=== PATIENT | female | born 1930 | race Caucasian/White ===

== ENCOUNTER 2016-03-31 12:41 | Inpatient (IN) | payer BC ==
[2016-03-31] MEDS ORDERED: SODIUM CHLORIDE 0.9% 1000 ML INFUS.BAG IV STA (12:58)
--- NOTE | 2016-03-31 12:58 | PDOC ---
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 with failure to thrive and worsening of right eye disease. The patient was admitted to the [facility] 2 months ago in the setting of falls, which was a marked change from her baseline just 4-5 months ago, when she was very high functioning and ambulatory. She was discharged to rehabilitation following that admission, and has remained in the residential since then. Over the last few weeks, the right thigh has become markedly inflamed and proptotic with progression from blurred vision or loss of vision. The patient has lost weight, has gone from ambulating with assistance to being bedridden, and has markedly decreased her by mouth intake. Family was concerned about her well-being and nutrition status, requested transfer to Hospital for evaluation. Patient is only complaining of headache and discomfort around her right eye, feels generally weak and has no appetite, but denies any focal cardiopulmonary complaints. No fevers or chills, unable to say whether she has been producing urine. <Chi Ramos - Last Filed: 03/31/16 15:41> <Teddy Ferrari - Last Filed: 03/31/16 16:12> - General Chief Complaint: Loss of Appetite Stated Complaint: Altered Mental Status Time Seen by Provider: 03/31/16 12:57 Past History - Psycho/Social/Smoking Cessation Hx Suicidal Ideation: No Smoking History: Never smoked Hx Alcohol Use: No Drug/Substance Use Hx: No <Chi Ramos - Last Filed: 03/31/16 15:41> <Teddy Ferrari - Last Filed: 03/31/16 16:12> - Past Medical History Allergies/Adverse Reactions: Allergies Allergy/AdvReac Type Severity Reaction Status Date / Time Cephalosporins Allergy Verified 03/31/16 12:56 Home Medications: Ambulatory Orders Acetaminophen [Pain Relief] 650 mg PO Q6H PRN 03/31/16 Aspirin [ASA -] 81 mg PO DAILY 03/31/16 Bacitracin - [Bacitracin Topical Ointment -] 1 applic TP DAILY 03/31/16 Butalb/Acetaminophen/Caffeine [Fioricet 50-300-40 mg Capsule] 1 each PO Q4H PRN 03/31/16 Erythromycin 0.5% Eye Ointment [Erythromycin 0.5% Eye Ointment -] 1 applic OD TID 03/31/16 Escitalopram Oxalate [Lexapro -] 10 mg PO DAILY 03/31/16 Famotidine [Pepcid] 20 mg PO BID 03/31/16 Haloperidol 0.5 mg PO DAILY 03/31/16 Insulin Glargine,Hum.rec.anlog [Lantus (nf)] 5 units SQ DAILY 03/31/16 Magnesium Hydroxide [Milk of Magnesia] 400 mg PO DAILY PRN 03/31/16 Na Phos,M-B/Na Phos,Di-Ba [Enema Cmnbv-Ia-Kzq] 133 ml RC DAILY PRN 03/31/16 Sitagliptin Phosphate [Januvia] 100 mg PO DAILY 03/31/16 Review of Systems - Review of Systems Able to Perform ROS?: No (limited by condition) <Chi Ramos - Last Filed: 03/31/16 15:41> *Physical Exam - Vital Signs Last Vital Signs Temp Pulse Resp BP Pulse Ox 96.3 F L 83 30 H 122/58 95 03/31/16 12:51 03/31/16 12:51 03/31/16 12:51 03/31/16 12:51 03/31/16 12:51 - Physical Exam Comments: 03/31/16 13:03 GENERAL: The patient is awake, alert, and fully oriented, tachypneic but answering questions appropriately. HEAD: Normal with no signs of trauma. EYES: Right eye is markedly inflamed and proptotic, the cornea/pupil is opacified, the upper and lower eyelids are erythematous and inflamed. Left eye is normal. Right eye has no gross visual acuity, left eye is normal. ENT: oropharynx clear without exudates. Dry mucous membranes. NECK: Normal range of motion, supple without lymphadenopathy, JVD, or masses. LUNGS: Tachypneic, shallow breaths, but otherwise equal, clear to auscultation bilaterally. No wheeze/crackles. HEART: Overall irregular, ? occasional bigeminy. ABDOMEN: Soft/nontender/nondistended. BS wnl. No guarding or rebound. No palpable masses. No hepatosplenomegaly. EXTREMITIES: Normal range of motion, no edema. 2+ distal pulses. chronic venous stasis dermatitis. Scattered superficial abrasions from falls with bandages in place. Will undress and assess for decubitus ulcers per nursing notes. NEUROLOGICAL: Cranial nerves II through XII grossly intact. Normal speech, moving all extremities equally. PSYCH: Normal mood, normal affect. SKIN: as noted <Chi Ramos - Last Filed: 03/31/16 15:41> - Vital Signs Last Vital Signs Temp Pulse Resp BP Pulse Ox 96.3 F L 83 30 H 122/58 95 03/31/16 12:51 03/31/16 12:51 03/31/16 12:51 03/31/16 12:51 03/31/16 12:51 <Teddy Ferrari - Last Filed: 03/31/16 16:12> Heart Score/ECG Review #1 ECG reviewed & interpreted by me at: 15:14 03/31/16 15:21 Atrial flutter with variable conduction, no acute ischemic changes. <Chi Ramos - Last Filed: 03/31/16 15:41> ED Treatment Course - LABORATORY CBC & Chemistry Diagram: 03/31/16 13:30 03/31/16 13:30 <Chi Ramos - Last Filed: 03/31/16 15:41> - LABORATORY CBC & Chemistry Diagram: 03/31/16 13:30 03/31/16 13:30 - ADDITIONAL ORDERS Additional order review: Laboratory Results 03/31/16 03/31/16 03/31/16 13:31 13:30 13:30 INR PTT (Actin FS) VBG pH 7.42 H POC VBG pCO2 42.5 POC VBG pO2 43.6 H Sodium Potassium Chloride Carbon Dioxide Anion Gap BUN Creatinine Creat Clearance w eGFR Random Glucose Lactic Acid 1.119 Calcium Total Bilirubin AST ALT Alkaline Phosphatase Creatine Kinase Troponin I Total Protein Albumin Blood Type AB POSITIVE Antibody Screen Negative 03/31/16 03/31/16 13:30 13:30 INR 1.20 H PTT (Actin FS) 27.9 VBG pH POC VBG pCO2 POC VBG pO2 Sodium 138 Potassium 4.3 Chloride 101 Carbon Dioxide 29 Anion Gap 8 BUN 7 Creatinine 0.3 L Creat Clearance w eGFR > 60 Random Glucose 183 H Lactic Acid Calcium 8.4 L Total Bilirubin 0.3 AST 13 L ALT 15 Alkaline Phosphatase 143 H Creatine Kinase 20 L Troponin I < 0.02 Total Protein 6.8 Albumin 2.5 L Blood Type Antibody Screen 03/31/16 13:30 RBC 3.98 MCV 87.5 MCHC 32.7 RDW 14.5 MPV 8.2 Neutrophils % 72.4 Lymphocytes % 16.3 Monocytes % 7.7 Eosinophils % 2.7 Basophils % 0.9 - RADIOLOGY Radiograph Interpretation: 03/31/16 16:05 EXAM: CXR Reviewed by: Dr. Chi Ramos Interpreted by: Dr. Graham Osei IMPRESSION: Right-sided infiltrates. Recommend follow-up chest x-ray to resolution to exclude possibility of underlying mass. EXAM: Head CT Reviewed by: Dr. Chi Ramos Interpreted by: Dr. Tulio Rodrigues IMPRESSION: No evidence of acute intracranial hemorrhage, edema, midline shift, mass effect, or skull fracture. Loss of volume of volume of the brain parenchyma with supratentorial chronic white matter microangiopathic ischemic changes. Lacunar infarcts in the basal ganglia, head of caudate nuclei. No CT evidence of acute territorial infarction. EXAM: CT facial bones Reviewed by: Dr. Chi Ramos Interpreted by: Dr. Tulio Rodrigues IMPRESSION: Right retro-orbital mass. 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 Right frontal sinus disease. Old fracture of the left frontal process of maxilla. Erosion of the anterior nasal septum. - Medications Given in the ED: ED Medications Discontinued Medications Generic Name Dose Route Start Last Admin Trade Name Freq PRN Reason Stop Dose Admin Sodium Chloride 1,157 ml 03/31/16 12:58 03/31/16 13:39 Normal Saline - IV 03/31/16 12:59 1,157 ml ONCE STA Administration <Teddy Ferrari - Last Filed: 03/31/16 16:12> Medical Decision Making - Medical Decision Making 03/31/16 13:07 A portion of this note was documented by scribe services under my direction. I have reviewed the details of the note, within reason, and agree with the documentation with the following case summary and management plan written by me. 86-year-old female from residential for failure to thrive, dehydration, worsening right ocular cancer. Dehydrated, tachypneic, possible acidosis, ? 2/2 renal failure? R/O progression/metastasis, neuro nonfocal. labs, ua ekg, cxr ivf ct head and maxillofacial Will need admission 03/31/16 14:23 notably, labs wnl except for mild electrolyte disturbance. CXR with infiltrate v. neoplasm, given no fever or leukocytosis, will defer to CT chest imaging. Head and facial CT pending. Accepted for inpt med/surg by Dr. Alvarado. 03/31/16 15:22 EKG with fib/flutter, reportedly new for patient. Inpatient team updated and switched to tele bed. 03/31/16 15:41 CT head shows no acute pathology. Maxillofacial CT shows retro-orbital mass causing proptosis. <Chi Ramos - Last Filed: 03/31/16 15:41> *DC/Admit/Observation/Transfer - Discharge Dispostion Admit: Yes <Chi Ramos - Last Filed: 03/31/16 15:41> <Teddy Ferrari - Last Filed: 03/31/16 16:12> Diagnosis at time of Disposition: Dehydration, Failure to thrive in adult, New onset atrial flutter Eye cancer Qualifiers: Laterality: right Qualified Code(s): C69.91 - Malignant neoplasm of unspecified site of right eye - Discharge Dispostion Condition at time of disposition: Guarded - Referrals
[2016-03-31 13:36] LABS: VENOUS BLOOD GAS HCO3 27.9 meq/L (22-29)
[2016-03-31 13:37] LABS: VENOUS PH 7.42 (7.31-7.41)
[2016-03-31 13:38] LABS: BASOPHIL 0.9 % (0-2.0); EOSINOPHIL 2.7 % (0-4.5); MCH 28.6 pg (25.7-33.7); MCHC 32.7 g/dl (32.0-36.0); MEAN CELL VOLUME 87.5 fl (80-96); MEAN PLT VOLUME 8.2 fl (7.5-11.1); NEUTROPHILS 72.4 % (42.8-82.8); PLATELET COUNT 670 K/MM3 (134-434); RDW 14.5 % (11.6-15.6); WHITE BLOOD COUNT 9.9 K/mm3 (4.0-10.0)
[2016-03-31 13:56] LABS: INR 1.2 (0.82-1.09); PROTHROMBIN TIME (PATIENT) 13.2 SEC (9.98-11.88)
[2016-03-31 13:58] LABS: ACTIVATED PTT 27.9 SECONDS (26.9-34.4)
[2016-03-31 13:59] LABS: ALBUMIN 2.5 g/dl (3.4-5.0); ANION GAP 8 (8-16); BILIRUBIN,TOTAL 0.3 mg/dL (0.2-1.0); CALCIUM 8.4 mg/dL (8.5-10.1); CO2 29 mmol/L (21-32); CREATININE 0.3 mg/dL (0.55-1.02); GLUCOSE,RANDOM 183 mg/dL (74-106); SGOT/AST 13 U/L (15-37); SGPT/ALT 15 U/L (12-78); TOT PROT 6.8 g/dl (6.4-8.2)
[2016-03-31 14:01] LABS: ALK PHOS 143 U/L (45-117); TROPONIN I < 0.02 ng/ml (0.00-0.05)
[2016-03-31 15:43] LABS: URINE APPEARANCE CLOUDY; URINE BILIRUBIN NEGATIVE (NEGATIVE); URINE BLOOD NEGATIVE (NEGATIVE); URINE COLOR YELLOW; URINE GLUCOSE (UA) NEGATIVE (NEGATIVE); URINE KETONE NEGATIVE (NEGATIVE); URINE LEUK ESTERASE NEGATIVE (NEGATIVE); URINE NITRITE NEGATIVE (NEGATIVE); URINE PROTEIN NEGATIVE (NEGATIVE); URINE UROBILINOGEN NEGATIVE E.U./dl (0.2-1.0)
[2016-03-31] MEDS ORDERED: MAGNESIUM HYDROX 2400MG/30ML ORAL SUSPENSION 30 ML CUP PO PRN (15:52)
[2016-03-31] MEDS ORDERED: SODIUM PHOSPHATE/NA BIPHOS 133 ML ENEMA RC PRN (15:52)
[2016-03-31] MEDS ORDERED: VANCOMYCIN 1 GRAM (PRE-DOCKED) 250 ML IVPB ONE (16:08)
[2016-03-31] MEDS ORDERED: PIPERACILLIN/TAZOB 3.375 GM/50 ML PRE-DOCKED IVPB ONE (16:08)
[2016-03-31] MEDS: INSULIN SLIDING SCALE (NOVOLOG) 1 VIAL SQ SCH ×2 (17:00→23:06)
[2016-03-31] MEDS ORDERED: PNEUMOC 13-VAL CONJ-DIP CRM/PF 0.5 ML DISP.SYRIN IM ONE (17:22)
[2016-03-31 17:23] VITALS: BMI 12.4
[2016-03-31] MEDS ORDERED: ALBUTEROL SO4 0.083% IH SOL 2.5 MG/3 ML VIAL.NEB. NEB PRN (17:42)
--- NOTE | 2016-03-31 17:45 | HP ---
CHIEF COMPLAINT: Change in mental status HISTORY OF PRESENT ILLNESS: This is an 86-year-old woman who was sent in to the ER today for evaluation of change in mental status, poor oral intake and tachypnea. She is not able to provide a history. As per family, in November, she had swelling of her right eyelid and was diagnosed with squamous cell carcinoma at [facility]. Radiation was recommended. Family was unable to get her to follow up because of anxiety and panic attacks. She was admitted to [facility] around 2 months ago and transferred to rehab at [facility]. While there, her right eye has become more swollen and proptotic. Family says it was being treated with topical antibiotics. The patient has complained of headaches. She has not been eating. PAST MEDICAL HISTORY Asthma Type 2 diabetes mellitus PAST SURGICAL HISTORY None Social History: Smoking: No Alcohol: No Drugs: No Recent Travel: No Family History: Unremarkable Allergies 3 Allergy/AdvReac Type Severity Reaction Status Date / Time No Known Drug Allergies Allergy Verified 03/31/16 17:46 HOME MEDICATIONS 3 Medication Instructions Recorded Acetaminophen [Pain Relief] 650 mg PO Q6H PRN 03/31/16 Aspirin [ASA -] 81 mg PO DAILY Bacitracin - [Bacitracin Topical 1 applic TP DAILY 03/31/16 Ointment -] Butalb/Acetaminophen/Caffeine 1 each PO Q4H PRN 03/31/16 [Fioricet 50-300-40 mg Capsule] Erythromycin 0.5% Eye Ointment 1 applic OD TID 03/31/16 [Erythromycin 0.5% Eye Ointment -] Escitalopram Oxalate [Lexapro -] 10 mg PO DAILY 03/31/16 Famotidine [Pepcid] 20 mg PO BID 03/31/16 Haloperidol 0.5 mg PO DAILY 03/31/16 Insulin Glargine,Hum.rec.anlog 5 units SQ DAILY 03/31/16 [Lantus (nf)] Magnesium Hydroxide [Milk of 400 mg PO DAILY PRN 03/31/16 Magnesia] Na Phos,M-B/Na Phos,Di-Ba [Enema 133 ml RC DAILY PRN 03/31/16 [id number]] Sitagliptin Phosphate [Januvia] 100 mg PO DAILY 03/31/16 REVIEW OF SYSTEMS Unobtainable PHYSICAL EXAMINATION Vital Signs Period Temp Pulse Resp BP Sys/Ojeda Pulse Ox Last 24 Hr 96.3 F 83 30 122/58 95 GENERAL: Awake, alert, confused, in no acute distress. HEAD: Normal with no signs of trauma. EYES: Right eye proptotic with opacified pupil. Left pupil round and reactive to light, left sclera anicteric, left conjunctiva clear. EARS, NOSE, THROAT: Ears normal, nares patent. Dry mucous membranes. NECK: Normal range of motion, supple without lymphadenopathy, JVD, or masses. LUNGS: Bilateral crackles. Labored breathing. HEART: Irregular rhythm without murmur, rub or gallop. ABDOMEN: Soft, not distended, normoactive bowel sounds, no guarding, no rebound , no masses. No hepatomegaly or splenomegaly. MUSCULOSKELETAL: Normal passive range of motion at all joints. No bony deformities. UPPER EXTREMITIES: 2+ pulses, warm, well-perfused. No cyanosis. No clubbing. Cap refill <2 seconds. No peripheral edema. LOWER EXTREMITIES: 2+ pulses, warm, well-perfused. No peripheral edema. NEUROLOGICAL: Unable to assess. PSYCHIATRIC: Unable to assess. SKIN: Warm, dry, poor turgor. Laboratory Tests 03/31/16 03/31/16 03/31/16 13:30 13:30 13:30 WBC 9.9 RBC 3.98 Hgb 11.4 Hct 34.8 MCV 87.5 MCHC 32.7 RDW 14.5 Plt Count 670 H MPV 8.2 Neutrophils % 72.4 Lymphocytes % 16.3 Monocytes % 7.7 Eosinophils % 2.7 Basophils % 0.9 INR 1.20 H PTT (Actin FS) 27.9 VBG pH POC VBG pCO2 POC VBG pO2 Sodium 138 Potassium 4.3 Chloride 101 Carbon Dioxide 29 Anion Gap 8 BUN 7 Creatinine 0.3 L Creat Clearance w eGFR > 60 Random Glucose 183 H Lactic Acid Calcium 8.4 L Total Bilirubin 0.3 AST 13 L ALT 15 Alkaline Phosphatase 143 H Creatine Kinase 20 L Troponin I < 0.02 Total Protein 6.8 Albumin 2.5 L Urine Color Urine Appearance Urine pH Ur Specific [place] Urine Protein Urine Glucose (UA) Urine Ketones Urine Blood Urine Nitrite Urine Bilirubin Urine Urobilinogen Ur Leukocyte Esterase Blood Type Antibody Screen 03/31/16 03/31/16 03/31/16 13:30 13:30 13:31 WBC RBC Hgb Hct MCV MCHC RDW Plt Count MPV Neutrophils % Lymphocytes % Monocytes % Eosinophils % Basophils % INR PTT (Actin FS) VBG pH 7.42 H POC VBG pCO2 42.5 POC VBG pO2 43.6 H Sodium Potassium Chloride Carbon Dioxide Anion Gap BUN Creatinine Creat Clearance w eGFR Random Glucose Lactic Acid 1.119 Calcium Total Bilirubin AST ALT Alkaline Phosphatase Creatine Kinase Troponin I Total Protein Albumin Urine Color Urine Appearance Urine pH Ur Specific [place] Urine Protein Urine Glucose (UA) Urine Ketones Urine Blood Urine Nitrite Urine Bilirubin Urine Urobilinogen Ur Leukocyte Esterase Blood Type AB POSITIVE Antibody Screen Negative 03/31/16 15:12 WBC RBC Hgb Hct MCV MCHC RDW Plt Count MPV Neutrophils % Lymphocytes % Monocytes % Eosinophils % Basophils % INR PTT (Actin FS) VBG pH POC VBG pCO2 POC VBG pO2 Sodium Potassium Chloride Carbon Dioxide Anion Gap BUN Creatinine Creat Clearance w eGFR Random Glucose Lactic Acid Calcium Total Bilirubin AST ALT Alkaline Phosphatase Creatine Kinase Troponin I Total Protein Albumin Urine Color Yellow Urine Appearance Cloudy Urine pH 6.0 Ur Specific [place] 1.013 Urine Protein Negative Urine Glucose (UA) Negative Urine Ketones Negative Urine Blood Negative Urine Nitrite Negative Urine Bilirubin Negative Urine Urobilinogen Negative Ur Leukocyte Esterase Negative Blood Type Antibody Screen Chest x-ray: Right-sided infiltrates. Head CT: No acute infarct, hemorrhage, mass. Volume loss. Chronic white matter ischemic changes. Lacunar infarcts of basal ganglia, head of caudate nuclei. CT of facial bones: Right retro-orbital mass. Right exophthalmos. Right frontal sinus disease. Old fracture of left frontal process of maxilla. Erosion of anterior nasal septum. EKG: Atrial flutter. Ventricular rate 72. ASSESSMENT/PLAN: This is an 86-year-old woman with a history of type 2 DM, asthma, squamous cell carcinoma of right eye who was sent in from [facility] for loss of appetite, headache, tachypnea and change in mental status. She was found to have temp 96.3 , right lung infiltrate on CXR. She is being admitted now for further evaluation and treatment of an emergent condition. 1. Healthcare-associated pneumonia, asthma - Patient has normal WBC, but has tachypnea and temp 96.3 - Start Zosyn, Vancomycin - Albuterol as needed - Chest CT - ID consult 2. Dehydration - IV fluid 3. Squamous cell carcinoma of right eyelid - Oncology, radiation oncology, ophthalmology consults 4. Failure to thrive - Start Glucerna - Nutrition consult 5. Type 2 diabetes mellitus - Continue Lantus, Januvia - Fingersticks with Novolog sliding scale 6. Atrial flutter, possibly new-onset - Monitor on telemetry - Serial troponins - Echocardiogram
[2016-03-31] MEDS ORDERED: PIPERACILLIN/TAZOB 3.375 GM 50 ML IVPB ONE (18:32)
[2016-03-31] MEDS: SODIUM CHLORIDE 1,000 ML IV SCH (18:48)
--- NOTE | 2016-03-31 21:26 | CONSULT ---
Consult - text type - Consultation Consultation Note: 86-year-old female with history of diabetes, ? squamous cell cancer of rt. eye lid status post initial diagnosis and biopsy in November, now presents from [facility] with failure to thrive and worsening of right eye disease. The patient was admitted to the [facility] 2 months ago in the setting of falls, which was a marked change from her baseline just 4-5 months ago, when she was very high functioning and ambulatory. She was discharged to rehabilitation following that admission, and [facility] since then. Over the last few weeks, the right eye has become markedly inflamed and proptotic with progression from blurred vision to loss of vision. The patient has lost weight, has gone from ambulating with assistance to being bedridden, and has markedly decreased her by mouth intake. Family was concerned about her well-being and nutrition status, requested transfer to Hospital for evaluation. Patient is only complaining of headache and discomfort around her right eye, feels generally weak and has no appetite, but denies any focal cardiopulmonary complaints. Past History never smoked - Past Medical History ? dementia asthma DM Allergies/Adverse Reactions: Allergies Allergy/AdvReac Type Severity Reaction Status Date / Time Cephalosporins Allergy Verified 03/31/16 12:56 Home Medications: Ambulatory Orders Acetaminophen [Pain Relief] 650 mg PO Q6H PRN 03/31/16 Aspirin [ASA -] 81 mg PO DAILY 03/31/16 Bacitracin - [Bacitracin Topical Ointment -] 1 applic TP DAILY 03/31/16 Butalb/Acetaminophen/Caffeine [Fioricet 50-300-40 mg Capsule] 1 each PO Q4H PRN 03/31/16 Erythromycin 0.5% Eye Ointment [Erythromycin 0.5% Eye Ointment -] 1 applic OD TID 03/31/16 Escitalopram Oxalate [Lexapro -] 10 mg PO DAILY 03/31/16 Famotidine [Pepcid] 20 mg PO BID 03/31/16 Haloperidol 0.5 mg PO DAILY 03/31/16 Insulin Glargine,Hum.rec.anlog [Lantus (nf)] 5 units SQ DAILY 03/31/16 Magnesium Hydroxide [Milk of Magnesia] 400 mg PO DAILY PRN 03/31/16 Na Phos,M-B/Na Phos,Di-Ba [Enema Ktayv-Mp-Bdq] 133 ml RC DAILY PRN 03/31/16 Sitagliptin Phosphate [Januvia] 100 mg PO DAILY 03/31/16 Current Medications Acetaminophen (Tylenol -) 650 mg PO Q6H PRN PRN Reason: PAIN Albuterol Sulfate (Ventolin 0.083% Nebulizer Soln -) 1 amp NEB Q4H PRN PRN Reason: SHORT OF BREATH/WHEEZING Aspirin (Asa -) 81 mg PO DAILY [facility] Escitalopram Oxalate (Lexapro -) 10 mg PO DAILY [facility] Haloperidol (Haldol -) 0.5 mg PO DAILY [facility] Sodium Chloride (Normal Saline -) 1,000 mls @ 100 mls/hr IV ASDIR [facility] Last Admin: 03/31/16 18:48 Dose: 100 mls/hr Insulin Aspart (Novolog Vial Sliding Scale -) 1 vial SQ ACHS [facility] PRN Reason: Protocol Last Admin: 03/31/16 17:00 Dose: Not Given Insulin Detemir (Levemir Vial) 5 units SQ DAILY@0700 [facility] Magnesium Hydroxide (Milk Of Magnesia -) 30 ml PO DAILY PRN PRN Reason: CONSTIPATION Morphine Sulfate (Morphine Injection -) 1 mg IVPUSH Q4H PRN PRN Reason: PAIN Ondansetron HCl (Zofran Injection) 4 mg IVPB Q4H PRN PRN Reason: NAUSEA Piperacillin Sod/Tazobactam Sod (Zosyn 3.375gm Ivpb (Pre-Docked)) 3.375 gm IVPB Q8H-IV BG Ranitidine HCl (Zantac -) 150 mg PO BID [facility] Sitagliptin Phosphate (Januvia -) 100 mg PO DAILY@0700 [facility] Sodium Phosphate (Fleet Adult Rectal Enema -) 133 ml RC DAILY PRN PRN Reason: CONSTIPATION *Physical Exam Last Vital Signs Temp Pulse Resp BP Pulse Ox 96.3 F L 83 30 H 122/58 95 03/31/16 12:51 03/31/16 12:51 03/31/16 12:51 03/31/16 12:51 03/31/16 12:51 Rt. orbital tumor with profound proptosis, extensive tumor involvement of rt. orbit Cor: RSR, No murmurs, No gallops Lungs: Clear to P&A Abd: Soft, Normal bowel sounds, No organomegaly Ext:No significant edema Abnormal Lab Results 03/31/16 03/31/16 03/31/16 13:30 13:30 13:30 Plt Count 670 H INR 1.20 H VBG pH POC VBG pO2 Creatinine 0.3 L Random Glucose 183 H Calcium 8.4 L AST 13 L Alkaline Phosphatase 143 H Creatine Kinase 20 L Albumin 2.5 L 03/31/16 13:31 Plt Count INR VBG pH 7.42 H POC VBG pO2 43.6 H Creatinine Random Glucose Calcium AST Alkaline Phosphatase Creatine Kinase Albumin - RADIOLOGY Radiograph Interpretation: IMPRESSION: Right-sided infiltrates. Recommend follow-up chest x-ray to resolution to exclude possibility of underlying mass. EXAM: Head CT IMPRESSION: No evidence of acute intracranial hemorrhage, edema, midline shift, mass effect, or skull fracture. Loss of volume of volume of the brain parenchyma with supratentorial chronic white matter microangiopathic ischemic changes. Lacunar infarcts in the basal ganglia, head of caudate nuclei. No CT evidence of acute territorial infarction. EXAM: CT facial bones IMPRESSION: Right retro-orbital mass. 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 Right frontal sinus disease. Old fracture of the left frontal process of maxilla. Erosion of the anterior nasal septum. A/P 86-year-old female from prison for failure to thrive, ? dementia, worsening right eye lid squamous cell cancer. Noted to have b/l pneumonia Rt. eyelid squamous cell cancer diagnosed 11/24 now with extensive orbital involvement and loss of rt. eye vision. Given her overall performance status does not seem to be a candidate for surgery . ophthalmology team consulted.will discuss with rad-onc ? paliiative options Overall very frail, cachectic -- will discuss goals of care with family. palliative care consult
[2016-03-31] MEDS: ACETAMINOPHEN 325 MG TABLET (FP) PO PRN (23:04)
[2016-03-31] MEDS: RANITIDINE HCL 150 MG TABLET (FP) PO SCH (23:16)
[2016-04-01] MEDS ORDERED: PIPERACILLIN/TAZOB 3.375 GM/50 ML PRE-DOCKED IVPB SCH (02:00)
[2016-04-01] MEDS: INSULIN SLIDING SCALE (NOVOLOG) 1 VIAL SQ SCH ×4 (06:21→21:57)
[2016-04-01] MEDS: INSULIN DETEMIR 100 UNITS/ML MDV SQ SCH (06:26)
[2016-04-01] MEDS: sitaGLIPtin PHOSPHATE 100 MG TABLET (FP) PO SCH (06:26)
[2016-04-01] MEDS: morphine CARPU-JECT 2 MG/1 ML DISP.SYRIN IVPUSH PRN (06:40)
[2016-04-01 07:55] LABS: MCH 28.9 pg (25.7-33.7); MEAN CELL VOLUME 87.6 fl (80-96); MEAN PLT VOLUME 8.4 fl (7.5-11.1); PLATELET COUNT 615 K/MM3 (134-434); RDW 14.4 % (11.6-15.6); WHITE BLOOD COUNT 8.3 K/mm3 (4.0-10.0)
[2016-04-01 08:50] LABS: CALCIUM 8.2 mg/dL (8.5-10.1); CREATININE 0.2 mg/dL (0.55-1.02)
[2016-04-01 09:21] LABS: FREE T4 1.16 ng/dl (0.76-1.46)
--- NOTE | 2016-04-01 09:51 | PN ---
Progress Note (short form) - Note Progress Note: ID Admitted for failure to thrive altered mental status Patient minimally conversive in NAD Selected Entries 03/31/16 16:50 Temperature 97.5 F L Pulse Rate 73 Respiratory 30 H Rate Blood Pressure 123/62 HEENT Proptosis of the orbital (has odor) Lungs Diminished effort bilat Laboratory Tests 03/31/16 04/01/16 04/01/16 15:12 06:00 06:00 WBC 8.3 Hgb 10.3 L Hct 31.1 L Plt Count 615 H BUN 3 L D Creatinine 0.2 L D Urine Nitrite Negative Assessment Orbital Cancer Failure to thrive Pulmonary infiltrates not impressive for acute pneumonia but given her debilitated status will give her the benefit of the doubt and treat Plan Zosyn 2.25grs q6 Teresita LEACH Problem List - Problems (1) Eye cancer Code(s): C69.90 - MALIGNANT NEOPLASM OF UNSPECIFIED SITE OF UNSPECIFIED EYE Qualifiers: Laterality: right Qualified Code(s): C69.91 - Malignant neoplasm of unspecified site of right eye (2) Pneumonia Code(s): J18.9 - PNEUMONIA, UNSPECIFIED ORGANISM
[2016-04-01 10:00] LABS: THYROID STIMULATING HORMONE 2.33 uIU/ml (0.358-3.74)
--- NOTE | 2016-04-01 10:22 | PN ---
Progress Note (short form) - Note Progress Note: Subjective: The patient was seen and examined at the bedside, she is minimally conversant this AM. She reports having some back pain but is unable to state where or how much pain she is in. At the moment she appears comfortable, no grimacing noted. Current Medications Generic Name Dose Route Start Last Admin Trade Name Freq PRN Reason Stop Dose Admin Acetaminophen 650 mg 03/31/16 15:44 03/31/16 23:04 Tylenol - PO 650 mg Q6H PRN Administration PAIN Albuterol Sulfate 1 amp 03/31/16 17:42 Ventolin 0.083% Nebulizer Soln - NEB Q4H PRN SHORT OF BREATH/WHEEZING Aspirin 81 mg 04/01/16 10:00 Asa - PO DAILY BG Escitalopram Oxalate 10 mg 04/01/16 10:00 Lexapro - PO DAILY BG Haloperidol 0.5 mg 04/01/16 10:00 Haldol - PO DAILY BG Sodium Chloride 1,000 mls @ 100 mls/hr 03/31/16 17:15 03/31/16 18:48 Normal Saline - IV 100 mls/hr ASDIR BG Administration Piperacillin Sod/Tazobactam 50 mls @ 100 mls/hr 04/01/16 15:00 Sod 2.25 gm/ Dextrose IVPB Q6H-IV BG Insulin Aspart 1 vial 03/31/16 16:30 04/01/16 06:21 Novolog Vial Sliding Scale - SQ Not Given ACHS [facility] Protocol Insulin Detemir 5 units 04/01/16 07:00 04/01/16 06:26 Levemir Vial SQ 5 units DAILY@0700 BG Administration Magnesium Hydroxide 30 ml 03/31/16 15:52 03/31/16 23:05 Milk Of Magnesia - PO 30 ml DAILY PRN Administration CONSTIPATION Morphine Sulfate 1 mg 03/31/16 15:55 04/01/16 06:40 Morphine Injection - IVPUSH 1 mg Q4H PRN Administration PAIN Ondansetron HCl 4 mg 03/31/16 15:55 Zofran Injection IVPB Q4H PRN NAUSEA Piperacillin Sod/Tazobactam Sod 3.375 gm 04/01/16 02:00 04/01/16 03:08 Zosyn 3.375gm Ivpb (Pre-Docked) IVPB 3.375 gm Q8H-IV BG Administration Ranitidine HCl 150 mg 03/31/16 22:00 03/31/16 23:16 Zantac - PO 150 mg BID BG Administration Sitagliptin Phosphate 100 mg 04/01/16 07:00 04/01/16 06:26 Januvia - PO 100 mg DAILY@0700 BG Administration Sodium Phosphate 133 ml 03/31/16 15:52 Fleet Adult Rectal Enema - RC DAILY PRN CONSTIPATION Objective: Vital Signs Period Temp Pulse Resp BP Sys/Ojeda Pulse Ox Last 24 Hr 96.3 F-99.7 F 71-83 18-30 122-153/46-84 95-98 Physical Exam: General: Sleeping, arousable to voice, is conversant with one word answers and then falls back to sleep HEENT: right eye with profound proptosis, opacified pupil, no eyelid movement or blinking. Left eye reactive to light Lungs: Decreased breath sounds anteriorly Heart: RRR, S1S2 Abd: Soft, non-distended. Normoactive bowel sounds Ext: Warm, well-perfused. 2+ DP/PT bilaterally CBCD WBC 8.3 K/mm3 (4.0-10.0) 04/01/16 06:00 RBC 3.55 M/mm3 (3.60-5.2) L 04/01/16 06:00 Hgb 10.3 GM/dL (10.7-15.3) L 04/01/16 06:00 Hct 31.1 % (32.4-45.2) L 04/01/16 06:00 MCV 87.6 fl (80-96) 04/01/16 06:00 MCHC 33.0 g/dl (32.0-36.0) 04/01/16 06:00 RDW 14.4 % (11.6-15.6) 04/01/16 06:00 Plt Count 615 K/MM3 (134-434) H 04/01/16 06:00 MPV 8.4 fl (7.5-11.1) 04/01/16 06:00 CMP Sodium 137 mmol/L (136-145) 04/01/16 06:00 Potassium 4.0 mmol/L (3.5-5.1) 04/01/16 06:00 Chloride 106 mmol/L (98-107) 04/01/16 06:00 Carbon Dioxide 25 mmol/L (21-32) 04/01/16 06:00 Anion Gap 6 (8-16) L 04/01/16 06:00 BUN 3 mg/dL (7-18) L D 04/01/16 06:00 Creatinine 0.2 mg/dL (0.55-1.02) L D 04/01/16 06:00 Creat Clearance w eGFR > 60 (>60) 03/31/16 13:30 Random Glucose 114 mg/dL (74-106) H D 04/01/16 06:00 Calcium 8.2 mg/dL (8.5-10.1) L 04/01/16 06:00 Total Bilirubin 0.3 mg/dL (0.2-1.0) 03/31/16 13:30 AST 13 U/L (15-37) L 03/31/16 13:30 ALT 15 U/L (12-78) 03/31/16 13:30 Alkaline Phosphatase 143 U/L (45-117) H 03/31/16 13:30 Total Protein 6.8 g/dl (6.4-8.2) 03/31/16 13:30 Albumin 2.5 g/dl (3.4-5.0) L 03/31/16 13:30 CARDIAC ENZYMES Creatine Kinase 20 IU/L (26-192) L 03/31/16 13:30 Troponin I < 0.02 ng/ml (0.00-0.05) 04/01/16 01:30 Assessment: This is an 86 year old female with PMHx of asthma, DM, squamous cell carcinoma of right eyelid who presented to the ED for FTT, change in mental status, and tachypnea. Plan: 1) ID: HCAP - WBC wnl - Chest CT with b/l infiltrates and no evidence of pulmonary masses - Continue Zosyn - Appreciate ID consult 2) Oncology: Right eyelid squamous cell carcinoma - Patient appears comfortable - Not a surgical candidate per oncology - F/u ophthalmology consult - F/u rad onc consult - Palliative care consult to discuss goals of care - Appreciate oncology consult 3) Endocrine: DM - Continue Levemir - ISS ACHS - BGM ACHS 4) Cardiology: Atrial flutter - New onset? - Serial troponins negative - F/u EKG today - F/u ECHO 5) F/E/N: - FTT: IV fluids, give glucerna - Monitor electrolytes 6) Prophylaxis: - SCDs bilaterally 7) Dispo: - Will likely require palliative care CODE STATUS: DNR Visit type - Emergency Visit Emergency Visit: Yes ED Registration Date: 03/31/16 Care time: The patient presented to the Emergency Department on the above date and was hospitalized for further evaluation of their emergent condition. - New Patient This patient is new to me today: Yes Date on this admission: 04/01/16 - Critical Care Critical Care patient: No
[2016-04-01] MEDS: HALOPERIDOL 0.5 MG TABLET PO SCH (11:04)
[2016-04-01] MEDS: ESCITALOPRAM OXALATE 10 MG TABLET (FP) PO SCH (11:18)
[2016-04-01] MEDS: ASPIRIN 81 MG CHEWABLE TABLETS PO SCH (11:18)
[2016-04-01] MEDS: RANITIDINE HCL 150 MG TABLET (FP) PO SCH ×2 (11:18→21:57)
[2016-04-01] MEDS: PIPERACILLIN/TAZOB 2.25 GM 50 ML IVPB SCH ×2 (15:15→21:57)
--- NOTE | 2016-04-01 16:25 | CONS ---
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 She was biopsy-proven in November 2015 and had been admitted subsequently for a lengthy admission to [facility] for frequent falls. She was apparently high functioning and ambulatory and had been discharged to a rehabilitation facility since that time, where she has remained. Her tumor was felt to be unresectable and she was not felt to be a candidate for radiation therapy. Thus she has a large proptotic right eye and has had progressive loss of weight over the preceding weeks and months. Her family was concerned at this time about her failure to thrive and poor nutritional status and requested that she be transferred to the hospital. At the time of my examination, the patient was alert but minimally conversive and unable to offer any specific complaints. Her past medical history includes squamous cell carcinoma of the eye recently diagnosed, diabetes mellitus. MEDICATION: Aspirin, haloperidol, insulin, and Januvia. Allergies to CEPHALOSPORIN, although her medical chart here reports no known allergies. SOCIAL HISTORY: Nonsmoker. No history of alcohol use. Family history and review of systems unobtainable. PHYSICAL EXAMINATION: General: An elderly 86-year-old debilitated woman, weighing 72 pounds. HEENT: Revealed a large proptotic right eye, which was inflamed. Neck: Supple. Lungs: With diminished breath sounds bilaterally. Heart: S1, S2. Regular rhythm. Abdomen: Soft, nontender. Extremities: Without clubbing, cyanosis or edema. Vital Signs: Temperature 99.7, pulse 83, blood pressure 128/46, respirations 20, O2 saturation 98% on 2 L nasal cannula. White count 8.3, hemoglobin 10.3, platelets 615, INR 1.2, BUN 7, creatinine 0.3, alkaline phosphatase 143, albumin 2.5. Urinalysis negative for nitrites. Two sets of blood cultures thus far no growth. Chest x-ray shows some patchy right-sided infiltrate and, on CT scan, small right infiltrates, atelectasis noted. ASSESSMENT: A debilitated 86-year-old female with proptotic right eye from squamous cell cancer, weighing 72 pounds, recently lengthy hospitalization at [facility], presents with failure to thrive. Clinically she does not appear to have obvious signs of pneumonia. She does have nonspecific chest x-ray findings suggesting possible pneumonia, though clinically she does not appear acute. That said, given her debilitated status, would err on the side of conservative and treat her empirically for possible hospital-associated pneumonia with piperacillin tazobactam. Will attempt to reach family to discuss the case further. CEASAR MORAES M.D. ALEKSANDR/[id number]
--- NOTE | 2016-04-01 17:07 | EKG ---
Test Reason : Blood Pressure : / mmHG Vent. Rate : 072 BPM Atrial Rate : 073 BPM P-R Int : 000 ms QRS Dur : 070 ms QT Int : 354 ms P-R-T Axes : 000 003 051 degrees QTc Int : 387 ms ATRIAL FIBRILLATION SEPTAL INFARCT , AGE UNDETERMINED ABNORMAL ECG NO PREVIOUS ECGS AVAILABLE Confirmed by BRE YORK MD ([id number]) on 04/01/2016 5:06:53 PM Referred By: Overread By: BRE YORK MD
--- NOTE | 2016-04-01 17:09 | EKG ---
Test Reason : Blood Pressure : / mmHG Vent. Rate : 069 BPM Atrial Rate : 069 BPM P-R Int : 150 ms QRS Dur : 078 ms QT Int : 424 ms P-R-T Axes : 047 003 065 degrees QTc Int : 454 ms SINUS RHYTHM WITH PREMATURE ATRIAL COMPLEXES OTHERWISE NORMAL ECG WHEN COMPARED WITH ECG OF 31-MAR-2016 15:14, SINUS RHYTHM HAS REPLACED ATRIAL FIBRILLATION CRITERIA FOR SEPTAL INFARCT ARE NO LONGER PRESENT QT HAS LENGTHENED Confirmed by CHELA LEACH, BRE ([id number]) on 04/01/2016 5:09:03 PM Referred By: EDMUNDO TERRAZAS Overread By: BRE YORK MD
[2016-04-01] MEDS: SODIUM CHLORIDE 1,000 ML IV SCH (17:57)
--- NOTE | 2016-04-01 18:24 | PN ---
Progress Note (short form) - Note Progress Note: Radiation Oncology Pt seen, chart/CT scans reviewed. Full dictated consult to follow. Discussed with son/HCP Neftaly who wishes her to have a course of palliative RT with the hope of minimizing further morbidity from orbital tumor. Will proceed with CT simulation tomorrow and start RT hopefully next week for total of 5 tx.
--- NOTE | 2016-04-01 19:51 | PN ---
Progress Note (short form) - Note Progress Note: Patient seen and examined Denies any complaints AFVSS Cor: RSR, No murmurs, No gallops Lungs: Clear to P&A Abd: Soft, Normal bowel sounds, No organomegaly Ext:No significant edema Skin: No rashes, Integument intact Abnormal Lab Results 04/01/16 04/01/16 04/01/16 06:00 06:00 06:00 RBC 3.55 L Hgb 10.3 L Hct 31.1 L Plt Count 615 H Anion Gap 6 L BUN 3 L D Creatinine 0.2 L D Random Glucose 114 H D Calcium 8.2 L Vitamin B12 1545 H Current Medications Acetaminophen (Tylenol -) 650 mg PO Q6H PRN PRN Reason: PAIN Last Admin: 03/31/16 23:04 Dose: 650 mg Albuterol Sulfate (Ventolin 0.083% Nebulizer Soln -) 1 amp NEB Q4H PRN PRN Reason: SHORT OF BREATH/WHEEZING Aspirin (Asa -) 81 mg PO DAILY [facility] Last Admin: 04/01/16 11:18 Dose: 81 mg Escitalopram Oxalate (Lexapro -) 10 mg PO DAILY [facility] Last Admin: 04/01/16 11:18 Dose: 10 mg Haloperidol (Haldol -) 0.5 mg PO DAILY [facility] Last Admin: 04/01/16 11:04 Dose: 0.5 mg Sodium Chloride (Normal Saline -) 1,000 mls @ 100 mls/hr IV ASDIR [facility] Last Admin: 04/01/16 17:57 Dose: 100 mls/hr Piperacillin Sod/Tazobactam Sod (Zosyn 2.25gm Ivpb (Pre-Docked)) 50 mls @ 100 mls/hr IVPB Q6H-IV [facility] Last Admin: 04/01/16 15:15 Dose: 100 mls/hr Insulin Aspart (Novolog Vial Sliding Scale -) 1 vial SQ ACHS [facility] PRN Reason: Protocol Last Admin: 04/01/16 17:57 Dose: Not Given Insulin Detemir (Levemir Vial) 5 units SQ DAILY@0700 [facility] Last Admin: 04/01/16 06:26 Dose: 5 units Magnesium Hydroxide (Milk Of Magnesia -) 30 ml PO DAILY PRN PRN Reason: CONSTIPATION Last Admin: 03/31/16 23:05 Dose: 30 ml Morphine Sulfate (Morphine Injection -) 1 mg IVPUSH Q4H PRN PRN Reason: PAIN Last Admin: 04/01/16 06:40 Dose: 1 mg Ondansetron HCl (Zofran Injection) 4 mg IVPB Q4H PRN PRN Reason: NAUSEA Ranitidine HCl (Zantac -) 150 mg PO BID [facility] Last Admin: 04/01/16 11:18 Dose: 150 mg Sitagliptin Phosphate (Januvia -) 100 mg PO DAILY@0700 [facility] Last Admin: 04/01/16 06:26 Dose: 100 mg Sodium Phosphate (Fleet Adult Rectal Enema -) 133 ml RC DAILY PRN PRN Reason: CONSTIPATION A/P 86 y/o patient with failure to thrive, rt. eye lid squamous cell cancer, locally invasive into the orbit, with massive rt. eye proptosis discussed with health care proxy, son Neftaly --in agreement with palliative RT if feasible. disucssed her overall poor prognosis
[2016-04-02] MEDS: PIPERACILLIN/TAZOB 2.25 GM 50 ML IVPB SCH ×4 (02:14→21:54)
[2016-04-02] MEDS: SODIUM CHLORIDE 1,000 ML IV SCH ×3 (06:28→21:54)
[2016-04-02] MEDS: INSULIN DETEMIR 100 UNITS/ML MDV SQ SCH (06:29)
[2016-04-02] MEDS: sitaGLIPtin PHOSPHATE 100 MG TABLET (FP) PO SCH (06:29)
[2016-04-02] MEDS: INSULIN SLIDING SCALE (NOVOLOG) 1 VIAL SQ SCH ×4 (06:30→21:58)
[2016-04-02] MEDS ORDERED: INSULIN DETEMIR 100 UNITS/ML MDV SQ ONE (06:56)
[2016-04-02] MEDS ORDERED: INSULIN (NOVOLOG) ASPART 100 UNITS/ML 10ML VIAL ONE (06:57)
[2016-04-02] MEDS: ASPIRIN 81 MG CHEWABLE TABLETS PO SCH (10:59)
[2016-04-02] MEDS: ESCITALOPRAM OXALATE 10 MG TABLET (FP) PO SCH (10:59)
[2016-04-02] MEDS: RANITIDINE HCL 150 MG TABLET (FP) PO SCH ×2 (10:59→21:55)
[2016-04-02] MEDS: HALOPERIDOL 0.5 MG TABLET PO SCH (11:00)
[2016-04-02] MEDS: morphine CARPU-JECT 2 MG/1 ML DISP.SYRIN IVPUSH PRN (11:00)
--- NOTE | 2016-04-02 11:47 | PN ---
Progress Note (short form) - Note Progress Note: Subjective: The patient was seen and examined at the bedside, she is opening her left eye to verbal stimulation, however she is non-conversant For CT simulation today and to start radiation next week per chart review Current Medications Generic Name Dose Route Start Last Admin Trade Name Freq PRN Reason Stop Dose Admin Acetaminophen 650 mg 03/31/16 15:44 03/31/16 23:04 Tylenol - PO 650 mg Q6H PRN Administration PAIN Albuterol Sulfate 1 amp 03/31/16 17:42 Ventolin 0.083% Nebulizer Soln - NEB Q4H PRN SHORT OF BREATH/WHEEZING Amino Acids 30 ml 04/02/16 17:30 Prostat Sugar-Free Packet - PO BID@0800,1730 BG Aspirin 81 mg 04/01/16 10:00 04/02/16 10:59 Asa - PO 81 mg DAILY BG Administration Escitalopram Oxalate 10 mg 04/01/16 10:00 04/02/16 10:59 Lexapro - PO 10 mg DAILY BG Administration Haloperidol 0.5 mg 04/01/16 10:00 04/02/16 11:00 Haldol - PO 0.5 mg DAILY BG Administration Sodium Chloride 1,000 mls @ 100 mls/hr 03/31/16 17:15 04/02/16 06:28 Normal Saline - IV 100 mls/hr ASDIR BG Administration Piperacillin Sod/Tazobactam Sod 50 mls @ 100 mls/hr 04/01/16 15:00 04/02/16 11: 00 Zosyn 2.25gm Ivpb (Pre-Docked) IVPB 100 mls/hr Q6H-IV BG Administration Insulin Aspart 1 vial 03/31/16 16:30 04/02/16 06:30 Novolog Vial Sliding Scale - SQ Not Given ACHS BG Protocol Insulin Detemir 5 units 04/01/16 07:00 04/02/16 06:29 Levemir Vial SQ 5 units DAILY@0700 BG Administration Magnesium Hydroxide 30 ml 03/31/16 15:52 03/31/16 23:05 Milk Of Magnesia - PO 30 ml DAILY PRN Administration CONSTIPATION Morphine Sulfate 1 mg 03/31/16 15:55 04/02/16 11:00 Morphine Injection - IVPUSH 1 mg Q4H PRN Administration PAIN Multivitamins/Minerals/Vitamin C 1 tab 04/02/16 11:45 Tab-A-Vit - PO DAILY BG Ondansetron HCl 4 mg 03/31/16 15:55 Zofran Injection IVPB Q4H PRN NAUSEA Ranitidine HCl 150 mg 03/31/16 22:00 04/02/16 10:59 Zantac - PO 150 mg BID BG Administration Sitagliptin Phosphate 100 mg 04/01/16 07:00 04/02/16 06:29 Januvia - PO 100 mg DAILY@0700 BG Administration Sodium Phosphate 133 ml 03/31/16 15:52 Fleet Adult Rectal Enema - RC DAILY PRN CONSTIPATION Objective: Vital Signs Period Temp Pulse Resp BP Sys/Ojeda Pulse Ox Last 24 Hr 97.3 F-98.2 F 74-88 16-26 134-148/55-72 92-94 Physical Exam: General: Sleeping, arousable to voice HEENT: right eye with profound proptosis, opacified pupil, no eyelid movement or blinking. Left eye reactive to light Lungs: Decreased breath sounds anteriorly Heart: RRR, S1S2 Abd: Soft, non-distended. Normoactive bowel sounds Ext: Warm, well-perfused. 2+ DP/PT bilaterally CBCD WBC 8.3 K/mm3 (4.0-10.0) 04/01/16 06:00 RBC 3.55 M/mm3 (3.60-5.2) L 04/01/16 06:00 Hgb 10.3 GM/dL (10.7-15.3) L 04/01/16 06:00 Hct 31.1 % (32.4-45.2) L 04/01/16 06:00 MCV 87.6 fl (80-96) 04/01/16 06:00 MCHC 33.0 g/dl (32.0-36.0) 04/01/16 06:00 RDW 14.4 % (11.6-15.6) 04/01/16 06:00 Plt Count 615 K/MM3 (134-434) H 04/01/16 06:00 MPV 8.4 fl (7.5-11.1) 04/01/16 06:00 CMP Sodium 137 mmol/L (136-145) 04/01/16 06:00 Potassium 4.0 mmol/L (3.5-5.1) 04/01/16 06:00 Chloride 106 mmol/L (98-107) 04/01/16 06:00 Carbon Dioxide 25 mmol/L (21-32) 04/01/16 06:00 Anion Gap 6 (8-16) L 04/01/16 06:00 BUN 3 mg/dL (7-18) L D 04/01/16 06:00 Creatinine 0.2 mg/dL (0.55-1.02) L D 04/01/16 06:00 Creat Clearance w eGFR > 60 (>60) 03/31/16 13:30 Random Glucose 114 mg/dL (74-106) H D 04/01/16 06:00 Calcium 8.2 mg/dL (8.5-10.1) L 04/01/16 06:00 Total Bilirubin 0.3 mg/dL (0.2-1.0) 03/31/16 13:30 AST 13 U/L (15-37) L 03/31/16 13:30 ALT 15 U/L (12-78) 03/31/16 13:30 Alkaline Phosphatase 143 U/L (45-117) H 03/31/16 13:30 Total Protein 6.8 g/dl (6.4-8.2) 03/31/16 13:30 Albumin 2.5 g/dl (3.4-5.0) L 03/31/16 13:30 CARDIAC ENZYMES Creatine Kinase 20 IU/L (26-192) L 03/31/16 13:30 Troponin I < 0.02 ng/ml (0.00-0.05) 04/01/16 01:30 Microbiology 03/31/16 13:30 Blood - Peripheral Venous Blood Culture - Preliminary NO GROWTH OBTAINED AFTER 24 HOURS, INCUBATION TO CONTINUE FOR 4 DAYS. 03/31/16 13:30 Blood - Peripheral Venous Blood Culture - Preliminary NO GROWTH OBTAINED AFTER 24 HOURS, INCUBATION TO CONTINUE FOR 4 DAYS. 03/31/16 15:12 Urine - Urine - Catheterized Urine Culture - Final NO GROWTH OBTAINED Assessment: This is an 86 year old female with PMHx of asthma, DM, squamous cell carcinoma of right eyelid who presented to the ED for FTT, change in mental status, and tachypnea. Plan: 1) ID: HCAP - WBC wnl - Chest CT with b/l infiltrates and no evidence of pulmonary masses - Continue Zosyn - Appreciate ID consult 2) Oncology: Right eyelid squamous cell carcinoma - Patient appears comfortable - Not a surgical candidate per oncology - F/u ophthalmology consult - For CT simulation today, will start radiation likely next week (5 sessions) - Palliative care consult to discuss goals of care - Appreciate oncology consult 3) Endocrine: DM - Continue Levemir - ISS ACHS - BGM ACHS 4) Cardiology: Atrial flutter - New onset? - EKG with sinus rhythm - Serial troponins negative - ECHO reviewed 5) F/E/N: - FTT: IV fluids, give glucerna - Start prostat - Start MVI - Monitor electrolytes 6) Prophylaxis: - SCDs bilaterally 7) Dispo: - Will likely require palliative care CODE STATUS: DNR Visit type - Emergency Visit Emergency Visit: Yes ED Registration Date: 03/31/16 Care time: The patient presented to the Emergency Department on the above date and was hospitalized for further evaluation of their emergent condition. - New Patient This patient is new to me today: No - Critical Care Critical Care patient: No
[2016-04-02] MEDS: MULTIVITAMINS (DAILY MVI) TABLET (FP) PO SCH (12:16)
--- NOTE | 2016-04-02 12:37 | CONSULT ---
Admitting History and Physical - Primary Care Physician PCP: Twila Pang - Admission History of Present Illness: 86 year old female with PMHx of asthma, DM, squamous cell carcinoma of right eyelid who presented to the ED for FTT, change in mental status, and tachypnea. Referred for swallowing evaluation, as pt's son feels his mother has difficulty swallowing. Lethargic but arousable. Selected Entries 04/01/16 04/01/16 04/02/16 14:21 18:07 02:00 Breakfast 0 Lunch 25% Supper 25% Temperature 97.7 F 04/02/16 04/02/16 06:00 10:00 Breakfast Lunch Supper Temperature 97.5 F L 98.2 F History Source: Patient ("Leave me alone"), Medical Record - Smoking History Smoking history: Never smoked - Alcohol/Substance Use Hx Alcohol Use: No History - Admission Reason For Visit: EYE CA,DEHYDRATION, FAILURE TO THRIVE - Diagnostics CT Scan: Report Reviewed (bibasilar infiltrates) - General Mental Status: Lethargic (arousable. Wants to be left alone. Limited cooperation ) - Hearing Hearing: Functional Hearing: Normal Speech Evaluation - Communication Primary Language: MALAYSIAN Communication: Yes: Simple Responses Oral Expression Ability: Yes: No Impairment - Speech Production Able to Make Needs Known: Yes: WNL Intelligibility: Yes: WNL - Speech Characteristics Voice Loudness: Normal Voice Pitch: Yes: Normal Voice Phonatory-based Quality: Yes: Normal Speech Pattern: Normal Speech Clarity: < 100% Nasal Resonance: Normal Articulation: Yes: Precise - Swallow Evaluation/Bedside Assessment Current Nutritional Intake: Regular, Thin Liquids Dentition: Yes: Missing Teeth Facial Symmetry at Rest: Symmetrical Velopharyngeal Movement: Normal Laryngeal Movement: Labored,delay initiation Bolus Size: Small (limited acceptance) Labial Seal: WFL Oral Prep Time: WFL A-P Transit: WFL Pocketing: None Timing of Swallow: Delayed Coughing/Throat Clear: No Change in Voice: No Recommendations - Speech Evaluation, Impression/Plan Impression: Swallow is delayed in onset with fair rate of laryngeal elevation and depression.No cough with thin liquid.Nursing reported that pt could not toleraate eggs, seemingly "getting stuck.". Limited cooperation. Poor appetite and poor acceptance of food/liquid. On palliative care. - Dysphagia Impressions/Plan *Silent aspiration: cannot be R/O at bedside Dysphagia Treatment Plan: Small Bites, Clear Pocket Food, 1/2 tsp. at a time, Elevate HOB during feed - Recommendations Diet Consistency: Dysphagia Pureed Medication Administration: Crushed with applesauce Liquids: Thin Liquids Supplement: Ensure, Magic Cup
--- NOTE | 2016-04-02 13:50 | PN ---
Progress Note (short form) - Note Progress Note: returned from radiation with complaints of pain, got morphin, now sound asleep NAD Vital Signs Period Temp Pulse Resp BP Sys/Ojeda Pulse Ox Last 24 Hr 97.3 F-98.2 F 74-88 16-26 134-148/55-72 92-94 right eye dressing intact cor-rrr lungs decreased bs at bases abd soft,nt ext no edema CBC, BMP 04/01/16 06:00 04/01/16 06:00 Microbiology 03/31/16 13:30 Blood - Peripheral Venous Blood Culture - Preliminary NO GROWTH OBTAINED AFTER 48 HOURS, INCUBATION TO CONTINUE FOR 3 DAYS. 03/31/16 13:30 Blood - Peripheral Venous Blood Culture - Preliminary NO GROWTH OBTAINED AFTER 48 HOURS, INCUBATION TO CONTINUE FOR 3 DAYS. 03/31/16 15:12 Urine - Urine - Catheterized Urine Culture - Final NO GROWTH OBTAINED chest ct-- patchy infiltrates a/p cannot r/o pneumonia- continue zosyn Day #2 orbital tumor- for radiation
--- NOTE | 2016-04-02 15:26 | CONSULT ---
Consult - text type - Consultation Consultation Note: Ophthalmology consult 86 year old woman diagnosed with SCC of right eyelid several months ago, now with severe right eye proptosis and CT orbits showing a retro-orbital mass and remodeling of the right orbital wall. Va OD - unable P unable to assess OD Severe proptosis of right eye, right globe completely exposed, lids unable to close over globe. No EOMs right eye Imp/Plan 1. 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 At this time, palliative therapy for the eye is all that is warranted, such as enucleation. Pt would require an orbital surgeon for such a treatment. If further evaluation and treatment by orbital surgeon is desired, patient should be transferred to either [facility] or [facility]. Any antibiotic ointment (ie Bacitracin ophthalmic or Erythromycin ophthalmic ointment) can be applied to the surface of the globe several times a day to limit surface breakdown, if tolerated by patient.
--- NOTE | 2016-04-02 16:51 | CONS ---
DATE OF CONSULTATION: 04/01/2016 REFERRING PHYSICIAN: Marilyn Son MD REASON FOR CONSULTATION: Right orbital tumor. 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 She was advised to have radiation therapy, but has not received it due to interval hospital admissions for changes in mental status, anxiety and agitation. In December she was transferred to a subacute rehab facility. Around that time she had an MRI of the orbits at an outside hospital, which showed an increasing right orbit mass measuring 5.3 cm, compared with studies in November 2014. Currently she is transferred from the [facility] for failure to thrive, altered mental status and dehydration. She is on empiric treatment for community-acquired pneumonia. She reports a headache but provides no further detail. PAST MEDICAL HISTORY: Left hip fracture, diabetes mellitus type 2, rheumatoid arthritis, GERD, asthma, carpal tunnel syndrome, polymyalgia rheumatica. PAST SURGICAL HISTORY: As noted above. ALLERGIES: No known drug allergies. CURRENT MEDICATIONS: Zosyn, Lexapro, Haldol, Ventolin, Januvia, Zantac, insulin sliding scale, daily multivitamin, baby aspirin. SOCIAL HISTORY: No recent tobacco or alcohol. FAMILY HISTORY: Unobtainable. REVIEW OF SYSTEMS: Unobtainable. PHYSICAL EXAMINATION: General: A frail, cachectic, elderly, female lying in a hospital, minimally verbally responsive to questions. Vital Signs: Temperature 97.9, blood pressure 148/67, pulse 81, respiratory rate 16, SaO2 of 92% on room air. HEENT: Right proptosis with periorbital erythema and edema. Left pupil reactive to light. Neck: No cervical adenopathy. Lungs: Diminished breath sounds. Cardiovascular: Regular. Abdomen: Soft, nontender. Extremities: No significant edema. Neurologic: Does not follow commands but is verbally responsive to some questions. LABORATORY DATA: WBC 8.3; hemoglobin 10.3; platelets 615,000. Electrolytes within normal limits, BUN 3, creatinine 0.2, calcium 8.2. RADIOLOGIC DATA: CT head and facial bones showed: No evidence of acute intracranial hemorrhage, edema, midline shift, mass effect or skull fracture. 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 Right retroorbital mass. Exophthalmos. The right ocular globe is displaced anteriorly and inferiorly. Old fracture of the left frontal process of maxilla. Erosion of the anterior nasal septum. PATHOLOGY: Right orbit biopsy report requested from outside facility. IMPRESSION: An 86-year-old woman with a squamous cell carcinoma by report, involving the right orbit, with local progression and invasion, resulting in significant mass effect and proptosis. I reviewed the CT scans, which do not show gross intracranial extension. She is responsive verbally. She is not a candidate for surgery or chemotherapy. I had a long discussion with her son and healthcare proxy about the poor prognosis and limited realistic treatment options. We certainly discussed palliative care and hospice care playing the primary role at this time or in the near future. We discussed the low possibility of palliative radiation therapy to stop this tumor from continuing to progress. We talked about possible slowing of the tumor progression and its associated morbidity. He informed me that he is in discussion with his family members and because of the difficulty of the situation, they wish to do as much as possible before proceeding with hospice, which he understands will likely be needed with or without any therapy. We discussed potential side effects that may include worsening headaches, skin reaction. He understands that radiation therapy will not reverse any of the current tumor sequela and certainly will not restore her vision or prolong her life. He has agreed to proceed with a short course of palliative radiotherapy, with the hope of minimizing further morbidity from the tumor. PLAN: We shall proceed with the CT simulation to determine if she can tolerate the treatment positioning with the immobilization mask. If she is able to tolerate the simulation, we will proceed with the radiation therapy next week, with a plan for 5 fractions to a total dose of 2000 cGy. Thank you for allowing me to participate in the care of this unfortunate patient. ADRYAN BARCLAY M.D. [id number] MTDD
[2016-04-02] MEDS: AMINO ACIDS/PROTEIN HYDROLYS SUGAR-FREE 30 ML PACKET PO SCH (17:57)
--- NOTE | 2016-04-02 18:27 | PN ---
Progress Note (short form) - Note Progress Note: Rad Onc Tolerated simulation and mask fairly well today. RT planning in progress. Will begin RT on Tue. 5 fractions planned. Palliative care consult.
[2016-04-03] MEDS: PIPERACILLIN/TAZOB 2.25 GM 50 ML IVPB SCH ×4 (02:52→21:04)
[2016-04-03] MEDS: INSULIN DETEMIR 100 UNITS/ML MDV SQ SCH (06:47)
[2016-04-03] MEDS: sitaGLIPtin PHOSPHATE 100 MG TABLET (FP) PO SCH (06:47)
[2016-04-03] MEDS: INSULIN SLIDING SCALE (NOVOLOG) 1 VIAL SQ SCH ×4 (06:48→22:12)
[2016-04-03] MEDS: SODIUM CHLORIDE 1,000 ML IV SCH ×2 (06:54→16:42)
[2016-04-03] MEDS: AMINO ACIDS/PROTEIN HYDROLYS SUGAR-FREE 30 ML PACKET PO SCH ×2 (08:00→17:36)
[2016-04-03] MEDS ORDERED: PT OWN MED DRAWER 7, Y5N ONE (10:51)
[2016-04-03] MEDS: RANITIDINE HCL 150 MG TABLET (FP) PO SCH ×2 (10:55→22:04)
[2016-04-03] MEDS: ASPIRIN 81 MG CHEWABLE TABLETS PO SCH (10:55)
[2016-04-03] MEDS: ESCITALOPRAM OXALATE 10 MG TABLET (FP) PO SCH (10:55)
[2016-04-03] MEDS: HALOPERIDOL 0.5 MG TABLET PO SCH (10:55)
--- NOTE | 2016-04-03 11:20 | PN ---
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
--- NOTE | 2016-04-03 15:58 | PN ---
Physical Exam: SUBJECTIVE: Patient seen and examined. She is comfortable lying in bed. She is confused. She denies pain. OBJECTIVE: Vital Signs Period Temp Pulse Resp BP Sys/Ojeda Pulse Ox Last 24 Hr 96.6 F-98.4 F 42-97 18-18 137-147/69-77 94-96 GENERAL: The patient is awake, alert, and confused, in no acute distress. HEAD: Normal with no signs of trauma. EYES: Dressing over right eye. NECK: Full range of motion, supple. LUNGS: Breath sounds equal, clear to auscultation bilaterally, no wheezes, no crackles, no accessory muscle use. HEART: Regular rate and rhythm, S1, S2, (+) 2/6 systolic murmur. ABDOMEN: Soft, nontender, nondistended, normoactive bowel sounds, no guarding, no rebound, no hepatosplenomegaly, no masses. EXTREMITIES: 2+ pulses, warm, well-perfused, no edema. Laboratory Results - last 24 hr 04/01/16 04/02/16 04/02/16 06:00 17:10 21:57 Hct 31.0 L POC Glucometer 83 74 Folate 1114 Folate Hemolysate 345.4 04/03/16 05:44 Hct POC Glucometer 77 Folate Folate Hemolysate Active Medications Generic Name Dose Route Start Last Admin Trade Name Freq PRN Reason Stop Dose Admin Acetaminophen 650 mg 03/31/16 15:44 03/31/16 23:04 Tylenol - PO 650 mg Q6H PRN Administration PAIN Albuterol Sulfate 1 amp 03/31/16 17:42 Ventolin 0.083% Nebulizer Soln - NEB Q4H PRN SHORT OF BREATH/WHEEZING Amino Acids 30 ml 04/02/16 17:30 04/03/16 08:00 Prostat Sugar-Free Packet - PO Not Given BID@0800,1730 BG Aspirin 81 mg 04/01/16 10:00 04/03/16 10:55 Asa - PO 81 mg DAILY BG Administration Escitalopram Oxalate 10 mg 04/01/16 10:00 04/03/16 10:55 Lexapro - PO 10 mg DAILY BG Administration Haloperidol 0.5 mg 04/01/16 10:00 04/03/16 10:55 Haldol - PO 0.5 mg DAILY BG Administration Sodium Chloride 1,000 mls @ 100 mls/hr 03/31/16 17:15 04/03/16 06:54 Normal Saline - IV 100 mls/hr ASDIR BG Administration Piperacillin Sod/Tazobactam Sod 50 mls @ 100 mls/hr 04/01/16 15:00 04/03/16 10: 56 Zosyn 2.25gm Ivpb (Pre-Docked) IVPB 100 mls/hr Q6H-IV BG Administration Insulin Aspart 1 vial 03/31/16 16:30 04/03/16 06:48 Novolog Vial Sliding Scale - SQ Not Given ACHS [facility] Protocol Insulin Detemir 5 units 04/01/16 07:00 04/03/16 06:47 Levemir Vial SQ Not Given DAILY@0700 BG Magnesium Hydroxide 30 ml 03/31/16 15:52 03/31/16 23:05 Milk Of Magnesia - PO 30 ml DAILY PRN Administration CONSTIPATION Multivitamins/Minerals/Vitamin C 1 tab 04/02/16 11:45 04/02/16 12:16 Tab-A-Vit - PO 1 tab DAILY BG Administration Ondansetron HCl 4 mg 03/31/16 15:55 Zofran Injection IVPB Q4H PRN NAUSEA Ranitidine HCl 150 mg 03/31/16 22:00 04/03/16 10:55 Zantac - PO 150 mg BID BG Administration Sitagliptin Phosphate 100 mg 04/01/16 07:00 04/03/16 06:47 Januvia - PO Not Given DAILY@0700 [facility] Sodium Phosphate 133 ml 03/31/16 15:52 Fleet Adult Rectal Enema - RC DAILY PRN CONSTIPATION ASSESSMENT/PLAN: This is an 86-year-old woman with a history of type 2 DM, asthma, squamous cell carcinoma of right eyelid who presented to the ER from [facility] for change in mental status. 1. Healthcare-associated pneumonia - Continue Zosyn (day 3) 2. Dehydration - Improved 3. Squamous cell carcinoma of right eyelid with severe proptosis of right eye - Plan for radiation therapy x 5 starting 04/06 4. Severe malnutrition - Continue Ensure Compact, multivitamin, Magic Cup, ProStat 5. Type 2 diabetes mellitus - Continue Levemir, Januvia, Novolog sliding scale 6. Paroxysmal atrial fibrillation - Remains in sinus rhythm Visit type - Emergency Visit Emergency Visit: Yes ED Registration Date: 03/31/16 Care time: The patient presented to the Emergency Department on the above date and was hospitalized for further evaluation of their emergent condition. - New Patient This patient is new to me today: No - Critical Care Critical Care patient: No - Discharge Referral Referred to [facility] Med P.C.: No
[2016-04-03] MEDS: MULTIVITAMINS (DAILY MVI) TABLET (FP) PO SCH (17:11)
[2016-04-04] MEDS: PIPERACILLIN/TAZOB 2.25 GM 50 ML IVPB SCH ×4 (03:35→21:30)
[2016-04-04] MEDS: sitaGLIPtin PHOSPHATE 100 MG TABLET (FP) PO SCH (06:35)
[2016-04-04] MEDS: INSULIN DETEMIR 100 UNITS/ML MDV SQ SCH (06:38)
[2016-04-04] MEDS: INSULIN SLIDING SCALE (NOVOLOG) 1 VIAL SQ SCH ×4 (06:38→22:30)
[2016-04-04] MEDS: AMINO ACIDS/PROTEIN HYDROLYS SUGAR-FREE 30 ML PACKET PO SCH ×2 (08:35→17:56)
--- NOTE | 2016-04-04 08:54 | PN ---
Physical Exam: SUBJECTIVE: Patient seen and examined. She appears comfortable. OBJECTIVE: Vital Signs Period Temp Pulse Resp BP Sys/Ojeda Pulse Ox Last 24 Hr 97.3 F-97.9 F 42-90 16-18 106-153/44-75 95-96 GENERAL: The patient is awake, alert, and confused, in no acute distress. HEAD: Normal with no signs of trauma. EYES: Dressing over right eye. NECK: Full range of motion, supple. LUNGS: Breath sounds equal, clear to auscultation bilaterally, no wheezes, no crackles, no accessory muscle use. HEART: Regular rate and rhythm, S1, S2, (+) 2/6 systolic murmur. ABDOMEN: Soft, nontender, nondistended, normoactive bowel sounds, no guarding, no rebound, no hepatosplenomegaly, no masses. EXTREMITIES: 2+ pulses, warm, well-perfused, no edema. Laboratory Results - last 24 hr 04/03/16 04/04/16 22:11 06:37 POC Glucometer 148 127 Active Medications Generic Name Dose Route Start Last Admin Trade Name Freq PRN Reason Stop Dose Admin Acetaminophen 650 mg 03/31/16 15:44 03/31/16 23:04 Tylenol - PO 650 mg Q6H PRN Administration PAIN Albuterol Sulfate 1 amp 03/31/16 17:42 Ventolin 0.083% Nebulizer Soln - NEB Q4H PRN SHORT OF BREATH/WHEEZING Amino Acids 30 ml 04/02/16 17:30 04/04/16 08:35 Prostat Sugar-Free Packet - PO 30 ml BID@0800,1730 BG Administration Aspirin 81 mg 04/01/16 10:00 04/03/16 10:55 Asa - PO 81 mg DAILY BG Administration Escitalopram Oxalate 10 mg 04/01/16 10:00 04/03/16 10:55 Lexapro - PO 10 mg DAILY BG Administration Haloperidol 0.5 mg 04/01/16 10:00 04/03/16 10:55 Haldol - PO 0.5 mg DAILY BG Administration Piperacillin Sod/Tazobactam Sod 50 mls @ 100 mls/hr 04/01/16 15:00 04/04/16 03: 35 Zosyn 2.25gm Ivpb (Pre-Docked) IVPB 100 mls/hr Q6H-IV BG Administration Sodium Chloride 1,000 mls @ 60 mls/hr 04/03/16 16:14 04/03/16 16:42 Normal Saline - IV 60 mls/hr ASDIR BG Administration Insulin Aspart 1 vial 03/31/16 16:30 04/04/16 06:38 Novolog Vial Sliding Scale - SQ Not Given ACHS [facility] Protocol Insulin Detemir 5 units 04/01/16 07:00 04/04/16 06:38 Levemir Vial SQ 5 units DAILY@0700 BG Administration Magnesium Hydroxide 30 ml 03/31/16 15:52 03/31/16 23:05 Milk Of Magnesia - PO 30 ml DAILY PRN Administration CONSTIPATION Multivitamins/Minerals/Vitamin C 1 tab 04/02/16 11:45 04/03/16 17:11 Tab-A-Vit - PO Not Given DAILY BG Ondansetron HCl 4 mg 03/31/16 15:55 Zofran Injection IVPB Q4H PRN NAUSEA Ranitidine HCl 150 mg 03/31/16 22:00 04/03/16 22:04 Zantac - PO 150 mg BID BG Administration Sitagliptin Phosphate 100 mg 04/01/16 07:00 04/04/16 06:35 Januvia - PO 100 mg DAILY@0700 BG Administration Sodium Phosphate 133 ml 03/31/16 15:52 Fleet Adult Rectal Enema - RC DAILY PRN CONSTIPATION ASSESSMENT/PLAN: This is an 86-year-old woman with a history of type 2 DM, asthma, squamous cell carcinoma of right eyelid who presented to the ER from [facility] for change in mental status. 1. Healthcare-associated pneumonia - Continue Zosyn (day 4) 2. Dehydration - Improved 3. Squamous cell carcinoma of right eyelid with severe proptosis of right eye - Plan for radiation therapy x 5 starting 04/06 - Accepted to [place] once radiation therapy completed 4. Severe malnutrition - Continue Ensure Compact, multivitamin, Magic Cup, ProStat 5. Type 2 diabetes mellitus - Continue Levemir, Januvia, Novolog sliding scale 6. Paroxysmal atrial fibrillation - Remains in sinus rhythm Visit type - Emergency Visit Emergency Visit: Yes ED Registration Date: 03/31/16 Care time: The patient presented to the Emergency Department on the above date and was hospitalized for further evaluation of their emergent condition. - New Patient This patient is new to me today: No - Critical Care Critical Care patient: No - Discharge Referral Referred to [facility] Med P.C.: No
[2016-04-04] MEDS: MULTIVITAMINS (DAILY MVI) TABLET (FP) PO SCH (11:09)
[2016-04-04] MEDS: ESCITALOPRAM OXALATE 10 MG TABLET (FP) PO SCH (11:09)
[2016-04-04] MEDS: ASPIRIN 81 MG CHEWABLE TABLETS PO SCH (11:09)
[2016-04-04] MEDS: RANITIDINE HCL 150 MG TABLET (FP) PO SCH ×2 (11:09→22:29)
[2016-04-04] MEDS ORDERED: PT OWN MED DRAWER 7, Y5N ONE (11:17)
[2016-04-04] MEDS: HALOPERIDOL 0.5 MG TABLET PO SCH (11:19)
[2016-04-04] MEDS: SODIUM CHLORIDE 1,000 ML IV SCH ×2 (11:25→17:57)
[2016-04-05] MEDS: PIPERACILLIN/TAZOB 2.25 GM 50 ML IVPB SCH ×4 (03:33→21:49)
[2016-04-05] MEDS: sitaGLIPtin PHOSPHATE 100 MG TABLET (FP) PO SCH (06:03)
[2016-04-05] MEDS: SODIUM CHLORIDE 1,000 ML IV SCH ×2 (06:04→18:06)
[2016-04-05] MEDS: INSULIN DETEMIR 100 UNITS/ML MDV SQ SCH (06:04)
[2016-04-05] MEDS: INSULIN SLIDING SCALE (NOVOLOG) 1 VIAL SQ SCH ×4 (06:04→21:55)
--- NOTE | 2016-04-05 08:56 | PN ---
Teaching Attending Note Name of Resident: Evans Quigley ATTENDING PHYSICIAN STATEMENT I saw and evaluated the patient. I reviewed the resident's note and discussed the case with the resident. I agree with the resident's findings and plan as documented. SUBJECTIVE: Patient is eating , getting fed by the aid. No acute distress. Feels tired and weak. OBJECTIVE: Vital Signs Temperature 97.8 F 04/05/16 06:00 Pulse Rate 80 04/05/16 06:00 Respiratory Rate 18 04/05/16 06:00 Blood Pressure 147/88 04/05/16 06:00 O2 Sat by Pulse Oximetry (%) 97 04/04/16 21:00 GENERAL: The patient is awake, alert, and confused, in no acute distress, cachectic HEAD: Normal with no signs of trauma. EYES: Dressing over right eye ( bulging of right eye with skin exposure, eye is closed) NECK: Full range of motion, supple. LUNGS: Breath sounds equal, clear to auscultation bilaterally, no wheezes, no crackles, no accessory muscle use. HEART: Regular rate and rhythm, S1, S2, (+) 2/6 systolic murmur. ABDOMEN: Soft, nontender, nondistended, normoactive bowel sounds, no guarding, no rebound, no hepatosplenomegaly, no masses. EXTREMITIES: 2+ pulses, warm, well-perfused, no edema. NEURO: Awake, CN 2-12 grossly intact CBCD WBC 8.3 K/mm3 (4.0-10.0) 04/01/16 06:00 RBC 3.55 M/mm3 (3.60-5.2) L 04/01/16 06:00 Hgb 10.3 GM/dL (10.7-15.3) L 04/01/16 06:00 Hct 31.0 % (34.0-46.6) L 04/01/16 06:00 MCV 87.6 fl (80-96) 04/01/16 06:00 MCHC 33.0 g/dl (32.0-36.0) 04/01/16 06:00 RDW 14.4 % (11.6-15.6) 04/01/16 06:00 Plt Count 615 K/MM3 (134-434) H 04/01/16 06:00 MPV 8.4 fl (7.5-11.1) 04/01/16 06:00 CMP Sodium 137 mmol/L (136-145) 04/01/16 06:00 Potassium 4.0 mmol/L (3.5-5.1) 04/01/16 06:00 Chloride 106 mmol/L (98-107) 04/01/16 06:00 Carbon Dioxide 25 mmol/L (21-32) 04/01/16 06:00 Anion Gap 6 (8-16) L 04/01/16 06:00 BUN 3 mg/dL (7-18) L D 04/01/16 06:00 Creatinine 0.2 mg/dL (0.55-1.02) L D 04/01/16 06:00 Creat Clearance w eGFR > 60 (>60) 03/31/16 13:30 Random Glucose 114 mg/dL (74-106) H D 04/01/16 06:00 Calcium 8.2 mg/dL (8.5-10.1) L 04/01/16 06:00 Total Bilirubin 0.3 mg/dL (0.2-1.0) 03/31/16 13:30 AST 13 U/L (15-37) L 03/31/16 13:30 ALT 15 U/L (12-78) 03/31/16 13:30 Alkaline Phosphatase 143 U/L (45-117) H 03/31/16 13:30 Total Protein 6.8 g/dl (6.4-8.2) 03/31/16 13:30 Albumin 2.5 g/dl (3.4-5.0) L 03/31/16 13:30 CARDIAC ENZYMES Creatine Kinase 20 IU/L (26-192) L 03/31/16 13:30 Troponin I < 0.02 ng/ml (0.00-0.05) 04/01/16 01:30 Current Medications Generic Name Dose Route Start Last Admin Trade Name Freq PRN Reason Stop Dose Admin Acetaminophen 650 mg 03/31/16 15:44 03/31/16 23:04 Tylenol - PO 650 mg Q6H PRN Administration PAIN Albuterol Sulfate 1 amp 03/31/16 17:42 Ventolin 0.083% Nebulizer Soln - NEB Q4H PRN SHORT OF BREATH/WHEEZING Amino Acids 30 ml 04/02/16 17:30 04/04/16 17:56 Prostat Sugar-Free Packet - PO 30 ml BID@0800,1730 BG Administration Aspirin 81 mg 04/01/16 10:00 04/04/16 11:09 Asa - PO 81 mg DAILY BG Administration Escitalopram Oxalate 10 mg 04/01/16 10:00 04/04/16 11:09 Lexapro - PO 10 mg DAILY BG Administration Haloperidol 0.5 mg 04/01/16 10:00 04/04/16 11:19 Haldol - PO 0.5 mg DAILY BG Administration Piperacillin Sod/Tazobactam Sod 50 mls @ 100 mls/hr 04/01/16 15:00 04/05/16 03: 33 Zosyn 2.25gm Ivpb (Pre-Docked) IVPB 100 mls/hr Q6H-IV BG Administration Sodium Chloride 1,000 mls @ 60 mls/hr 04/03/16 16:14 04/05/16 06:04 Normal Saline - IV 60 mls/hr ASDIR [facility] Administration Insulin Aspart 1 vial 03/31/16 16:30 04/05/16 06:04 Novolog Vial Sliding Scale - SQ Not Given [facility] Protocol Insulin Detemir 5 units 04/01/16 07:00 04/05/16 06:04 Levemir Vial SQ 5 units DAILY@0700 [facility] Administration Magnesium Hydroxide 30 ml 03/31/16 15:52 03/31/16 23:05 Milk Of Magnesia - PO 30 ml DAILY PRN Administration CONSTIPATION Multivitamins/Minerals/Vitamin C 1 tab 04/02/16 11:45 04/04/16 11:09 Tab-A-Vit - PO 1 tab DAILY [facility] Administration Ondansetron HCl 4 mg 03/31/16 15:55 Zofran Injection IVPB Q4H PRN NAUSEA Ranitidine HCl 150 mg 03/31/16 22:00 04/04/16 22:29 Zantac - PO 150 mg BID BG Administration Sitagliptin Phosphate 100 mg 04/01/16 07:00 04/05/16 06:03 Januvia - PO 100 mg DAILY@0700 [facility] Administration Sodium Phosphate 133 ml 03/31/16 15:52 Fleet Adult Rectal Enema - RC DAILY PRN CONSTIPATION Medication Instructions Recorded Acetaminophen [Pain Relief] 650 mg PO Q6H PRN 03/31/16 Aspirin [ASA -] 81 mg PO DAILY 03/31/16 Bacitracin - [Bacitracin Topical 1 applic TP DAILY 03/31/16 Ointment -] Butalb/Acetaminophen/Caffeine 1 each PO Q4H PRN 03/31/16 [Fioricet 50-300-40 mg Capsule] Erythromycin 0.5% Eye Ointment 1 applic OD TID 03/31/16 [Erythromycin 0.5% Eye Ointment -] Escitalopram Oxalate [Lexapro -] 10 mg PO DAILY 03/31/16 Famotidine [Pepcid] 20 mg PO BID 03/31/16 Haloperidol 0.5 mg PO DAILY 03/31/16 Insulin Glargine,Hum.rec.anlog 5 units SQ DAILY 03/31/16 [Lantus (nf)] Magnesium Hydroxide [Milk of 400 mg PO DAILY PRN 03/31/16 Magnesia] Mineral Oil/Petrolatum,White 3.5 gm OD TID 03/31/16 [Artificial Tears Eye Ointment] Na Phos,M-B/Na Phos,Di-Ba [Enema 133 ml RC DAILY PRN 03/31/16 Qzurm-Qd-Tru] Sitagliptin Phosphate [Januvia] 100 mg PO DAILY 03/31/16 ASSESSMENT AND PLAN: This is an 86-year-old woman with a history of type 2 DM, asthma, squamous cell carcinoma of right eyelid who presented to the ER from [facility] for change in mental status. # Acute Healthcare-associated pneumonia on Zosyn (day 5); ID on the case. # Squamous cell carcinoma of right eyelid with severe proptosis of right eye : Plan for radiation therapy x 5 starting 04/[address]Hermanto Faria; Accepted to [place] once radiation therapy completed. # Acute severe malnutrition with Cachexia on Ensure Compact, multivitamin, Magic Cup, ProStat continue, tolerating diet, the aid is feeding the patient at bedside. # Type 2 diabetes mellitus on Levemir, Januvia, Novolog sliding scale # Paroxysmal atrial fibrillation in sinus rhythm DVT Px: SCDs
--- NOTE | 2016-04-05 09:37 | PN ---
Physical Exam: SUBJECTIVE: Patient seen and examined pt is awake, alert and oriented Pt is complaining about generalized weakness, fatigue and poor appetites Pt denies pain, fever, chills, n/v, shjortness of breath, cough, palpitation OBJECTIVE: Vital Signs Period Temp Pulse Resp BP Sys/Ojeda Pulse Ox Last 24 Hr 97.1 F-98.6 F 79-90 18-40 129-147/68-88 97 GENERAL: The patient is awake, alert, and fully oriented, in no acute distress. HEAD: Normal with no signs of trauma. EYES: right eye covered with eye patch with pink granulated tissue covered the eye globe with perioprbital swelling and redness. left eye with pupil that react and intact EOM ENT: Ears normal, nares patent, oropharynx clear without exudates, dry mucous membranes. NECK: Trachea midline, full range of motion, supple. LUNGS: Breath sounds equal,diminished to auscultation bilaterally, no wheezes, no crackles, no accessory muscle use. HEART: Regular rate and rhythm, S1, S2 without murmur, rub or gallop. ABDOMEN: Soft, nontender, nondistended, normoactive bowel sounds, no guarding, no rebound, no hepatosplenomegaly, no masses. EXTREMITIES: 2+ pulses, warm, well-perfused, no edema. NEUROLOGICAL: Normal speech, gait not observed. strength 4/5 in upper ext and 3 /5 in lower ext PSYCH: Normal mood, normal affect. SKIN: Warm, dry, scaly, poor turgor, no rashes or lesions noted Laboratory Results - last 24 hr 04/04/16 04/04/16 04/04/16 11:55 18:02 22:27 POC Glucometer 125 182 87 04/05/16 06:00 POC Glucometer 111 Active Medications Generic Name Dose Route Start Last Admin Trade Name Freq PRN Reason Stop Dose Admin Acetaminophen 650 mg 03/31/16 15:44 03/31/16 23:04 Tylenol - PO 650 mg Q6H PRN Administration PAIN Albuterol Sulfate 1 amp 03/31/16 17:42 Ventolin 0.083% Nebulizer Soln - NEB Q4H PRN SHORT OF BREATH/WHEEZING Amino Acids 30 ml 04/02/16 17:30 04/04/16 17:56 Prostat Sugar-Free Packet - PO 30 ml BID@0800,1730 BG Administration Aspirin 81 mg 04/01/16 10:00 04/04/16 11:09 Asa - PO 81 mg DAILY BG Administration Escitalopram Oxalate 10 mg 04/01/16 10:00 04/04/16 11:09 Lexapro - PO 10 mg DAILY BG Administration Haloperidol 0.5 mg 04/01/16 10:00 04/04/16 11:19 Haldol - PO 0.5 mg DAILY BG Administration Piperacillin Sod/Tazobactam Sod 50 mls @ 100 mls/hr 04/01/16 15:00 04/05/16 03: 33 Zosyn 2.25gm Ivpb (Pre-Docked) IVPB 100 mls/hr Q6H-IV BG Administration Sodium Chloride 1,000 mls @ 60 mls/hr 04/03/16 16:14 04/05/16 06:04 Normal Saline - IV 60 mls/hr ASDIR [facility] Administration Insulin Aspart 1 vial 03/31/16 16:30 04/05/16 06:04 Novolog Vial Sliding Scale - SQ Not Given ACHS [facility] Protocol Insulin Detemir 5 units 04/01/16 07:00 04/05/16 06:04 Levemir Vial SQ 5 units DAILY@0700 BG Administration Magnesium Hydroxide 30 ml 03/31/16 15:52 03/31/16 23:05 Milk Of Magnesia - PO 30 ml DAILY PRN Administration CONSTIPATION Multivitamins/Minerals/Vitamin C 1 tab 04/02/16 11:45 04/04/16 11:09 Tab-A-Vit - PO 1 tab DAILY BG Administration Ondansetron HCl 4 mg 03/31/16 15:55 Zofran Injection IVPB Q4H PRN NAUSEA Ranitidine HCl 150 mg 03/31/16 22:00 04/04/16 22:29 Zantac - PO 150 mg BID BG Administration Sitagliptin Phosphate 100 mg 04/01/16 07:00 04/05/16 06:03 Januvia - PO 100 mg DAILY@0700 [facility] Administration Sodium Phosphate 133 ml 03/31/16 15:52 Fleet Adult Rectal Enema - RC DAILY PRN CONSTIPATION CBC, BMP 04/01/16 06:00 04/01/16 06:00 Microbiology 03/31/16 15:12 Urine - Urine - Catheterized Urine Culture - Final NO GROWTH OBTAINED 03/31/16 13:30 Blood - Peripheral Venous Blood Culture - Preliminary NO GROWTH OBTAINED AFTER 96 HOURS, INCUBATION TO CONTINUE FOR 1 DAYS. 03/31/16 13:30 Blood - Peripheral Venous Blood Culture - Preliminary NO GROWTH OBTAINED AFTER 96 HOURS, INCUBATION TO CONTINUE FOR 1 DAYS. Laboratory Tests 04/01/16 16:30 Lactic Acid 0.887 Chest x-ray: Right-sided infiltrates. Recommend follow-up chest x-ray to resolution to exclude possibility of underlying mass. Head CT: No evidence of acute intracranial hemorrhage, edema, midline shift, mass effect, or skull fracture. Loss of volume of volume of the brain parenchyma with supratentorial chronic white matter microangiopathic ischemic changes. Lacunar infarcts in the basal ganglia, head of caudate nuclei. CT of facial bones: Right retro-orbital mass. 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 Right frontal sinus disease. Old fracture of the left frontal process of maxilla. Erosion of the anterior nasal septum. CT chest w/o contrast:The lung oshea are hyperaerated with diffusely increased interstitial markings indicative of COPD. There is patchy peripheral consolidation posteriorly within the right upper and lower lobes, as well as posterior aspect of the left lower lobe. No pulmonary masses or pleural effusions are identified. EKG: Atrial flutter. Ventricular rate 72. ASSESSMENT/PLAN: 86 year old female with pmh type 2 DM, asthma, squamous cell carcinoma of right eye from [facility] for loss of appetite, tachypnea, headache, change in mental status. 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 DNR Visit type - Emergency Visit Emergency Visit: Yes ED Registration Date: 03/31/16 Care time: The patient presented to the Emergency Department on the above date and was hospitalized for further evaluation of their emergent condition. - New Patient This patient is new to me today: Yes Date on this admission: 04/05/16 - Critical Care Critical Care patient: No - Discharge Referral Referred to [facility] No
[2016-04-05] MEDS: HALOPERIDOL 0.5 MG TABLET PO SCH (10:33)
[2016-04-05] MEDS: ASPIRIN 81 MG CHEWABLE TABLETS PO SCH (10:33)
[2016-04-05] MEDS: AMINO ACIDS/PROTEIN HYDROLYS SUGAR-FREE 30 ML PACKET PO SCH ×2 (10:33→18:07)
[2016-04-05] MEDS: RANITIDINE HCL 150 MG TABLET (FP) PO SCH ×2 (10:34→21:50)
[2016-04-05] MEDS: MULTIVITAMINS (DAILY MVI) TABLET (FP) PO SCH (10:34)
[2016-04-05] MEDS: ESCITALOPRAM OXALATE 10 MG TABLET (FP) PO SCH (10:39)
[2016-04-05] MEDS: ACETAMINOPHEN 325 MG TABLET (FP) PO PRN (21:58)
[2016-04-06] MEDS: PIPERACILLIN/TAZOB 2.25 GM 50 ML IVPB SCH ×4 (03:34→21:36)
[2016-04-06] MEDS: INSULIN SLIDING SCALE (NOVOLOG) 1 VIAL SQ SCH ×4 (06:20→21:39)
[2016-04-06] MEDS: sitaGLIPtin PHOSPHATE 100 MG TABLET (FP) PO SCH (06:20)
[2016-04-06] MEDS: INSULIN DETEMIR 100 UNITS/ML MDV SQ SCH (06:20)
[2016-04-06 07:47] LABS: MCH 28.7 pg (25.7-33.7); MCHC 33.1 g/dl (32.0-36.0); MEAN CELL VOLUME 86.6 fl (80-96); MEAN PLT VOLUME 7.8 fl (7.5-11.1); PLATELET COUNT 483 K/MM3 (134-434); RDW 14.5 % (11.6-15.6); WHITE BLOOD COUNT 7.5 K/mm3 (4.0-10.0)
[2016-04-06] MEDS: AMINO ACIDS/PROTEIN HYDROLYS SUGAR-FREE 30 ML PACKET PO SCH ×2 (08:00→18:56)
[2016-04-06 09:22] LABS: CALCIUM 8.8 mg/dL (8.5-10.1); CREATININE 0.2 mg/dL (0.55-1.02)
[2016-04-06] MEDS: MULTIVITAMINS (DAILY MVI) TABLET (FP) PO SCH (10:26)
[2016-04-06] MEDS: ASPIRIN 81 MG CHEWABLE TABLETS PO SCH (10:26)
[2016-04-06] MEDS: RANITIDINE HCL 150 MG TABLET (FP) PO SCH ×2 (10:26→21:39)
[2016-04-06] MEDS: ESCITALOPRAM OXALATE 10 MG TABLET (FP) PO SCH (10:26)
[2016-04-06] MEDS ORDERED: PT OWN MED DRAWER 7, Y5N ONE (10:30)
[2016-04-06] MEDS: HALOPERIDOL 0.5 MG TABLET PO SCH (10:31)
--- NOTE | 2016-04-06 11:10 | PN ---
Physical Exam: SUBJECTIVE: Patient seen and examined pt is awake, alert Pt is more communicative today pt follow directions Pt denies chest pain, palpitation, sob, fever, chills, n/v, dizziness pt complained of generalized weakness Pt is s/p radiation this morning OBJECTIVE: Vital Signs Period Temp Pulse Resp BP Sys/Ojeda Pulse Ox Last 24 Hr 97.5 F-98.9 F 68-103 18-22 129-154/54-93 GENERAL: The patient is awake, alert, and oriented, in no acute distress. HEAD: Normal with no signs of trauma. EYES: right eye covered with eye patch with pink granulated tissue covered the eye globe with periorbital swelling and redness. left eye with pupil that react and intact EOM ENT: Ears normal, nares patent, oropharynx clear without exudates, dry mucous membranes. NECK: Trachea midline, full range of motion, supple. LUNGS: Breath sounds equal,diminished to auscultation bilaterally, no wheezes, no crackles, no accessory muscle use. HEART: Regular rate and rhythm, S1, S2 without murmur, rub or gallop. ABDOMEN: Soft, nontender, nondistended, normoactive bowel sounds, no guarding, no rebound, no hepatosplenomegaly, no masses. EXTREMITIES: 2+ pulses, warm, well-perfused, no edema. NEUROLOGICAL: Normal speech, gait not observed. strength 4/5 in upper ext and 3 /5 in lower ext PSYCH: Normal mood, normal affect. SKIN: Warm, dry, scaly, poor turgor, no rashes or lesions noted Laboratory Results - last 24 hr 04/03/16 04/03/16 04/05/16 17:33 17:35 12:21 WBC RBC Hgb Hct MCV MCHC RDW Plt Count MPV Sodium Potassium Chloride Carbon Dioxide Anion Gap BUN Creatinine POC Glucometer 236 255 102 Random Glucose Calcium 04/05/16 04/05/16 04/06/16 17:12 21:54 06:00 WBC 7.5 RBC 3.67 Hgb 10.5 L Hct 31.8 L MCV 86.6 MCHC 33.1 RDW 14.5 Plt Count 483 H D MPV 7.8 Sodium Potassium Chloride Carbon Dioxide Anion Gap BUN Creatinine POC Glucometer 97 99 Random Glucose Calcium 04/06/16 04/06/16 06:00 06:19 WBC RBC Hgb Hct MCV MCHC RDW Plt Count MPV Sodium 144 Potassium 3.2 L Chloride 101 Carbon Dioxide 31 D Anion Gap 12 BUN 4 L D Creatinine 0.2 L POC Glucometer 102 Random Glucose 85 D Calcium 8.8 Active Medications Generic Name Dose Route Start Last Admin Trade Name Freq PRN Reason Stop Dose Admin Acetaminophen 650 mg 03/31/16 15:44 04/05/16 21:58 Tylenol - PO 650 mg Q6H PRN Administration PAIN Amino Acids 30 ml 04/02/16 17:30 04/06/16 08:00 Prostat Sugar-Free Packet - PO Not Given BID@0800,1730 BG Aspirin 81 mg 04/01/16 10:00 04/06/16 10:26 Asa - PO 81 mg DAILY BG Administration Escitalopram Oxalate 10 mg 04/01/16 10:00 04/06/16 10:26 Lexapro - PO 10 mg DAILY BG Administration Haloperidol 0.5 mg 04/01/16 10:00 04/06/16 10:31 Haldol - PO 0.5 mg DAILY BG Administration Piperacillin Sod/Tazobactam Sod 50 mls @ 100 mls/hr 04/01/16 15:00 04/06/16 10: 26 Zosyn 2.25gm Ivpb (Pre-Docked) IVPB 100 mls/hr Q6H-IV BG Administration Sodium Chloride 1,000 mls @ 60 mls/hr 04/03/16 16:14 04/05/16 18:06 Normal Saline - IV Not Given ASDIR [facility] Insulin Aspart 1 vial 03/31/16 16:30 04/06/16 06:20 Novolog Vial Sliding Scale - SQ Not Given ACHS [facility] Protocol Insulin Detemir 5 units 04/01/16 07:00 04/06/16 06:20 Levemir Vial SQ 5 units DAILY@0700 BG Administration Magnesium Hydroxide 30 ml 03/31/16 15:52 03/31/16 23:05 Milk Of Magnesia - PO 30 ml DAILY PRN Administration CONSTIPATION Multivitamins/Minerals/Vitamin C 1 tab 04/02/16 11:45 04/06/16 10:26 Tab-A-Vit - PO 1 tab DAILY BG Administration Ondansetron HCl 4 mg 03/31/16 15:55 Zofran Injection IVPB Q4H PRN NAUSEA Ranitidine HCl 150 mg 03/31/16 22:00 04/06/16 10:26 Zantac - PO 150 mg BID BG Administration Sitagliptin Phosphate 100 mg 04/01/16 07:00 04/06/16 06:20 Januvia - PO 100 mg DAILY@0700 BG Administration Sodium Phosphate 133 ml 03/31/16 15:52 Fleet Adult Rectal Enema - RC DAILY PRN CONSTIPATION CBC, BMP 04/06/16 06:00 04/06/16 06:00 Laboratory Tests 04/06/16 06:00 Calcium 8.8 Phosphorus [address] chest w/o contrast: Limited study with bilateral infiltrates and no evidence of pulmonary masses. Clinical correlation and follow-up recommended. ECho 04/01/16: LV normal size and function. RV normal size and function, mild AR Chest x-ray: Right-sided infiltrates. Recommend follow-up chest x-ray to resolution to exclude possibility of underlying mass. Head CT: No evidence of acute intracranial hemorrhage, edema, midline shift, mass effect, or skull fracture. Loss of volume of volume of the brain parenchyma with supratentorial chronic white matter microangiopathic ischemic changes. Lacunar infarcts in the basal ganglia, head of caudate nuclei. CT of facial bones: Right retro-orbital mass. 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 Right frontal sinus disease. Old fracture of the left frontal process of maxilla. Erosion of the anterior nasal septum. CT chest w/o contrast:The lung oshea are hyperaerated with diffusely increased interstitial markings indicative of COPD. There is patchy peripheral consolidation posteriorly within the right upper and lower lobes, as well as posterior aspect of the left lower lobe. No pulmonary masses or pleural effusions are identified. EKG: Atrial flutter. Ventricular rate 72. ASSESSMENT/PLAN: 86 year old female with pmh type 2 DM, asthma, squamous cell carcinoma of right eye from [facility] for loss of appetite, tachypnea, headache, change in mental status. 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 DNR Visit type - Emergency Visit Emergency Visit: Yes ED Registration Date: 03/31/16 Care time: The patient presented to the Emergency Department on the above date and was hospitalized for further evaluation of their emergent condition. - New Patient This patient is new to me today: No - Critical Care Critical Care patient: No
[2016-04-06 11:34] LABS: MAGNESIUM 2.1 mg/dL (1.8-2.4); PHOSPHOROUS 3.1 mg/dL (2.5-4.9)
--- NOTE | 2016-04-06 13:11 | PN ---
Teaching Attending Note Name of Resident: Herminio Saleem ATTENDING PHYSICIAN STATEMENT I saw and evaluated the patient. I reviewed the resident's note and discussed the case with the resident. I agree with the resident's findings and plan as documented. SUBJECTIVE: Patient feels tired, had her 1st Rtx therapy today. OBJECTIVE: Vital Signs Temperature 97.7 F 04/06/16 06:00 Pulse Rate 68 04/06/16 06:00 Respiratory Rate 20 04/06/16 06:00 Blood Pressure 129/71 04/06/16 06:00 O2 Sat by Pulse Oximetry (%) 96 04/05/16 09:00 GENERAL: The patient is awake, alert, and confused, in no acute distress, cachectic HEAD: Normal with no signs of trauma. EYES: Dressing over right eye ( bulging of right eye with skin exposure, eye is closed) NECK: Full range of motion, supple. LUNGS: Breath sounds equal, clear to auscultation bilaterally, no wheezes, no crackles, no accessory muscle use. HEART: Regular rate and rhythm, S1, S2, (+) 2/6 systolic murmur. ABDOMEN: Soft, nontender, nondistended, normoactive bowel sounds, no guarding, no rebound, no hepatosplenomegaly, no masses. EXTREMITIES: 2+ pulses, warm, well-perfused, no edema. NEURO: Awake, CN 2-12 grossly intact CBCD WBC 7.5 K/mm3 (4.0-10.0) 04/06/16 06:00 RBC 3.67 M/mm3 (3.60-5.2) 04/06/16 06:00 Hgb 10.5 GM/dL (10.7-15.3) L 04/06/16 06:00 Hct 31.8 % (32.4-45.2) L 04/06/16 06:00 MCV 86.6 fl (80-96) 04/06/16 06:00 MCHC 33.1 g/dl (32.0-36.0) 04/06/16 06:00 RDW 14.5 % (11.6-15.6) 04/06/16 06:00 Plt Count 483 K/MM3 (134-434) H D 04/06/16 06:00 MPV 7.8 fl (7.5-11.1) 04/06/16 06:00 CMP Sodium 144 mmol/L (136-145) 04/06/16 06:00 Potassium 3.2 mmol/L (3.5-5.1) L 04/06/16 06:00 Chloride 101 mmol/L (98-107) 04/06/16 06:00 Carbon Dioxide 31 mmol/L (21-32) D 04/06/16 06:00 Anion Gap 12 (8-16) 04/06/16 06:00 BUN 4 mg/dL (7-18) L D 04/06/16 06:00 Creatinine 0.2 mg/dL (0.55-1.02) L 04/06/16 06:00 Creat Clearance w eGFR > 60 (>60) 03/31/16 13:30 Random Glucose 85 mg/dL (74-106) D 04/06/16 06:00 Calcium 8.8 mg/dL (8.5-10.1) 04/06/16 06:00 Total Bilirubin 0.3 mg/dL (0.2-1.0) 03/31/16 13:30 AST 13 U/L (15-37) L 03/31/16 13:30 ALT 15 U/L (12-78) 03/31/16 13:30 Alkaline Phosphatase 143 U/L (45-117) H 03/31/16 13:30 Total Protein 6.8 g/dl (6.4-8.2) 03/31/16 13:30 Albumin 2.5 g/dl (3.4-5.0) L 03/31/16 13:30 CARDIAC ENZYMES Creatine Kinase 20 IU/L (26-192) L 03/31/16 13:30 Troponin I < 0.02 ng/ml (0.00-0.05) 04/01/16 01:30 Current Medications Generic Name Dose Route Start Last Admin Trade Name Freq PRN Reason Stop Dose Admin Acetaminophen 650 mg 03/31/16 15:44 04/05/16 21:58 Tylenol - PO 650 mg Q6H PRN Administration PAIN Amino Acids 30 ml 04/02/16 17:30 04/06/16 08:00 Prostat Sugar-Free Packet - PO Not Given BID@0800,1730 BG Aspirin 81 mg 04/01/16 10:00 04/06/16 10:26 Asa - PO 81 mg DAILY BG Administration Escitalopram Oxalate 10 mg 04/01/16 10:00 04/06/16 10:26 Lexapro - PO 10 mg DAILY BG Administration Haloperidol 0.5 mg 04/01/16 10:00 04/06/16 10:31 Haldol - PO 0.5 mg DAILY BG Administration Piperacillin Sod/Tazobactam Sod 50 mls @ 100 mls/hr 04/01/16 15:00 04/06/16 10: 26 Zosyn 2.25gm Ivpb (Pre-Docked) IVPB 100 mls/hr Q6H-IV BG Administration Sodium Chloride 1,000 mls @ 60 mls/hr 04/03/16 16:14 04/05/16 18:06 Normal Saline - IV Not Given ASDIR [facility] Insulin Aspart 1 vial 03/31/16 16:30 04/06/16 06:20 Novolog Vial Sliding Scale - SQ Not Given ACHS [facility] Protocol Insulin Detemir 5 units 04/01/16 07:00 04/06/16 06:20 Levemir Vial SQ 5 units DAILY@0700 BG Administration Magnesium Hydroxide 30 ml 03/31/16 15:52 03/31/16 23:05 Milk Of Magnesia - PO 30 ml DAILY PRN Administration CONSTIPATION Multivitamins/Minerals/Vitamin C 1 tab 04/02/16 11:45 04/06/16 10:26 Tab-A-Vit - PO 1 tab DAILY BG Administration Ondansetron HCl 4 mg 03/31/16 15:55 Zofran Injection IVPB Q4H PRN NAUSEA Potassium Chloride 40 meq 04/06/16 11:15 Kcl Oral Solution - PO 04/06/16 22:01 BID [facility] Ranitidine HCl 150 mg 03/31/16 22:00 04/06/16 10:26 Zantac - PO 150 mg BID BG Administration Sitagliptin Phosphate 100 mg 04/01/16 07:00 04/06/16 06:20 Januvia - PO 100 mg DAILY@0700 [facility] Administration Sodium Phosphate 133 ml 03/31/16 15:52 Fleet Adult Rectal Enema - RC DAILY PRN CONSTIPATION Medication Instructions Recorded Acetaminophen [Pain Relief] 650 mg PO Q6H PRN 03/31/16 Aspirin [ASA -] 81 mg PO DAILY 03/31/16 Bacitracin - [Bacitracin Topical 1 applic TP DAILY 03/31/16 Ointment -] Butalb/Acetaminophen/Caffeine 1 each PO Q4H PRN 03/31/16 [Fioricet 50-300-40 mg Capsule] Erythromycin 0.5% Eye Ointment 1 applic OD TID 03/31/16 [Erythromycin 0.5% Eye Ointment -] Escitalopram Oxalate [Lexapro -] 10 mg PO DAILY 03/31/16 Famotidine [Pepcid] 20 mg PO BID 03/31/16 Haloperidol 0.5 mg PO DAILY 03/31/16 Insulin Glargine,Hum.rec.anlog 5 units SQ DAILY 03/31/16 [Lantus (nf)] Magnesium Hydroxide [Milk of 400 mg PO DAILY PRN 03/31/16 Magnesia] Mineral Oil/Petrolatum,White 3.5 gm OD TID 03/31/16 [Artificial Tears Eye Ointment] Na Phos,M-B/Na Phos,Di-Ba [Enema 133 ml RC DAILY PRN 03/31/16 [id number]] Sitagliptin Phosphate [Januvia] 100 mg PO DAILY 03/31/16 ASSESSMENT AND PLAN: This is an 86-year-old woman with a history of type 2 DM, asthma, squamous cell carcinoma of right eyelid who presented to the ER from [facility] for change in mental status. # Acute Healthcare-associated pneumonia on Zosyn (day 5); ID on the case. 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 nutrition consult # Type 2 diabetes mellitus on Levemir, Januvia, Novolog sliding scale # Paroxysmal atrial fibrillation in sinus rhythm DVT Px: SCDs
--- NOTE | 2016-04-06 14:02 | PN ---
Progress Note (short form) - Note Progress Note: Rad Onc More verbal today. Cooperative on tx table. Tolerated 1st RT today @ 400cGy. 4 fractions remaining, will cont tomorrow. Hospice planned after RT.
[2016-04-06] MEDS: POTASSIUM CHLORIDE 40 MEQ/30 ML UNIT DOSE CUP PO SCH ×2 (15:12→21:40)
[2016-04-06] MEDS: SODIUM CHLORIDE 1,000 ML IV SCH (15:13)
[2016-04-07] MEDS: ACETAMINOPHEN 325 MG TABLET (FP) PO PRN ×3 (01:28→16:59)
[2016-04-07] MEDS: SODIUM CHLORIDE 1,000 ML IV SCH ×3 (01:33→23:00)
[2016-04-07] MEDS: PIPERACILLIN/TAZOB 2.25 GM 50 ML IVPB SCH ×3 (02:40→16:44)
[2016-04-07] MEDS: INSULIN SLIDING SCALE (NOVOLOG) 1 VIAL SQ SCH ×4 (06:04→21:50)
[2016-04-07] MEDS: ONDANSETRON 4 MG/2 ML VIAL IVPB PRN (06:25)
[2016-04-07] MEDS: INSULIN DETEMIR 100 UNITS/ML MDV SQ SCH (07:02)
[2016-04-07] MEDS: sitaGLIPtin PHOSPHATE 100 MG TABLET (FP) PO SCH (07:02)
[2016-04-07 09:11] LABS: MCH 28.7 pg (25.7-33.7); MCHC 32.7 g/dl (32.0-36.0); MEAN CELL VOLUME 87.7 fl (80-96); MEAN PLT VOLUME 7.4 fl (7.5-11.1); PLATELET COUNT 440 K/MM3 (134-434); RDW 14.9 % (11.6-15.6); WHITE BLOOD COUNT 7.4 K/mm3 (4.0-10.0)
[2016-04-07 09:36] LABS: CALCIUM 9.2 mg/dL (8.5-10.1); MAGNESIUM 2.2 mg/dL (1.8-2.4)
[2016-04-07 09:39] LABS: CREATININE 0.3 mg/dL (0.55-1.02)
[2016-04-07] MEDS ORDERED: PT OWN MED DRAWER 7, Y5N ONE (09:56)
[2016-04-07] MEDS: RANITIDINE HCL 150 MG TABLET (FP) PO SCH ×2 (10:05→21:50)
[2016-04-07] MEDS: ASPIRIN 81 MG CHEWABLE TABLETS PO SCH (10:05)
[2016-04-07] MEDS: MULTIVITAMINS (DAILY MVI) TABLET (FP) PO SCH (10:05)
[2016-04-07] MEDS: HALOPERIDOL 0.5 MG TABLET PO SCH (10:05)
[2016-04-07] MEDS: ESCITALOPRAM OXALATE 10 MG TABLET (FP) PO SCH (10:05)
[2016-04-07] MEDS: AMINO ACIDS/PROTEIN HYDROLYS SUGAR-FREE 30 ML PACKET PO SCH ×2 (10:06→16:46)
--- NOTE | 2016-04-07 13:57 | PN ---
Progress Note (short form) - Note Progress Note: Rad Onc No complaints. Tolerated 2nd RT today @ 800cGy. 3 fractions remaining, will cont tomorrow. Hospice planned after RT.
--- NOTE | 2016-04-07 18:15 | PN ---
Teaching Attending Note Name of Resident: Herminio Saleem ATTENDING PHYSICIAN STATEMENT I saw and evaluated the patient. I reviewed the resident's note and discussed the case with the resident. I agree with the resident's findings and plan as documented. SUBJECTIVE: does not feel well . tired. no fever or chills, denies pain OBJECTIVE: NAD , knows she is in hospital , not cooperative and does not answer other orientatin questions CV: RRR Lungs : decreased breath sounds at bases ext : no edema on legs . abrasion on R olson ASSESSMENT AND PLAN: This is an 86-year-old woman with a history of type 2 DM, asthma, squamous cell carcinoma of right eyelid who presented to the ER from [facility] for change in mental status. she was diagnosed with PNA . 1- AMS , due to metabolic encephalopathy from infection. improved 2- HCAP: day 7 of zosyn. will dc as no fever or leukocytosis , and cxray showed improvement . 3- SCC of R eye lid . s/p Rtx day 2. needs 3 more 4- cachexia , cont supplements 5- DM II : cont levemir , januvia and SSI 6- P A fib. sinus now DVT px : sq heparin
--- NOTE | 2016-04-07 18:23 | PN ---
Physical Exam: SUBJECTIVE: Patient seen and examined Pt is feeling weak and tired, follow simple orders Wants to be left alone no pain, no fever, no chills, no n/v, no chest pain or palpitation, no headache OBJECTIVE: Vital Signs Period Temp Pulse Resp BP Sys/Ojeda Pulse Ox Last 24 Hr 97.2 F-98.0 F 57-78 18-18 102-169/58-80 94 GENERAL: The patient is awake, alert, and oriented to person and place in no acute distress. HEAD: Normal with no signs of trauma. EYES: right eye covered with eye patch with pink granulated tissue covered the eye globe with periorbital swelling and redness. left eye with pupil that react and intact EOM ENT: Ears normal, nares patent, oropharynx clear without exudates, dry mucous membranes. NECK: Trachea midline, full range of motion, supple. LUNGS: Breath sounds equal,diminished to auscultation bilaterally, no wheezes, no crackles, no accessory muscle use. HEART: Regular rate and rhythm, S1, S2 without murmur, rub or gallop. ABDOMEN: Soft, nontender, nondistended, normoactive bowel sounds, no guarding, no rebound, no hepatosplenomegaly, no masses. EXTREMITIES: 2+ pulses, warm, well-perfused, no edema. NEUROLOGICAL: Normal speech, gait not observed. strength 4/5 in upper ext and 3 /5 in lower ext PSYCH: despondent mood, flat affect. SKIN: Warm, dry, scaly, poor turgor, no rashes or lesions noted Laboratory Results - last 24 hr 04/06/16 04/06/16 04/07/16 18:21 21:38 05:47 WBC RBC Hgb Hct MCV MCHC RDW Plt Count MPV Sodium Potassium Chloride Carbon Dioxide Anion Gap BUN Creatinine POC Glucometer 124 78 102 Random Glucose Calcium Phosphorus Magnesium 04/07/16 04/07/16 04/07/16 08:45 08:45 16:40 WBC 7.4 RBC 3.60 Hgb 10.3 L Hct 31.5 L MCV 87.7 MCHC 32.7 RDW 14.9 Plt Count 440 H MPV 7.4 L Sodium 140 Potassium 4.0 D Chloride 104 Carbon Dioxide 31 Anion Gap 5 L BUN 4 L Creatinine 0.3 L D POC Glucometer 111 Random Glucose 107 H D Calcium 9.2 Phosphorus 3.0 Magnesium 2.2 Active Medications Generic Name Dose Route Start Last Admin Trade Name Freq PRN Reason Stop Dose Admin Acetaminophen 650 mg 03/31/16 15:44 04/07/16 16:59 Tylenol - PO 650 mg Q6H PRN Administration PAIN Amino Acids 30 ml 04/02/16 17:30 04/07/16 16:46 Prostat Sugar-Free Packet - PO 30 ml BID@0800,1730 BG Administration Aspirin 81 mg 04/01/16 10:00 04/07/16 10:05 Asa - PO 81 mg DAILY BG Administration Escitalopram Oxalate 10 mg 04/01/16 10:00 04/07/16 10:05 Lexapro - PO 10 mg DAILY BG Administration Haloperidol 0.5 mg 04/01/16 10:00 04/07/16 10:05 Haldol - PO 0.5 mg DAILY BG Administration Heparin Sodium (Porcine) 5,000 unit 04/07/16 22:00 Heparin - SQ TID BG Piperacillin Sod/Tazobactam Sod 50 mls @ 100 mls/hr 04/01/16 15:00 04/07/16 16: 44 Zosyn 2.25gm Ivpb (Pre-Docked) IVPB 100 mls/hr Q6H-IV BG Administration Sodium Chloride 1,000 mls @ 60 mls/hr 04/03/16 16:14 04/07/16 16:44 Normal Saline - IV 60 mls/hr ASDIR BG Administration Insulin Aspart 1 vial 03/31/16 16:30 04/07/16 16:43 Novolog Vial Sliding Scale - SQ Not Given [facility] Protocol Insulin Detemir 5 units 04/01/16 07:00 04/07/16 07:02 Levemir Vial SQ Not Given DAILY@0700 BG Magnesium Hydroxide 30 ml 03/31/16 15:52 03/31/16 23:05 Milk Of Magnesia - PO 30 ml DAILY PRN Administration CONSTIPATION Multivitamins/Minerals/Vitamin C 1 tab 04/02/16 11:45 04/07/16 10:05 Tab-A-Vit - PO 1 tab DAILY BG Administration Ondansetron HCl 4 mg 03/31/16 15:55 04/07/16 06:25 Zofran Injection IVPB 4 mg Q4H PRN Administration NAUSEA Ranitidine HCl 150 mg 03/31/16 22:00 04/07/16 10:05 Zantac - PO 150 mg BID BG Administration Sitagliptin Phosphate 100 mg 04/01/16 07:00 04/07/16 07:02 Januvia - PO Not Given DAILY@0700 BG Sodium Phosphate 133 ml 03/31/16 15:52 Fleet Adult Rectal Enema - RC DAILY PRN CONSTIPATION CBC, BMP 04/07/16 08:45 04/07/16 08:45 Microbiology 03/31/16 15:12 Urine - Urine - Catheterized Urine Culture - Final NO GROWTH OBTAINED 03/31/16 13:30 Blood - Peripheral Venous Blood Culture - Final NO GROWTH AFTER 5 DAYS INCUBATION 03/31/16 13:30 Blood - Peripheral Venous Blood Culture - Final NO GROWTH AFTER 5 DAYS INCUBATION Laboratory Tests 04/07/16 08:45 Phosphorus 3.0 Magnesium 2.2 Cxr 04/07/16 Since 03/31/2016, there is no sign of an infiltrate at this time. There is rotation to the right, unfolded aorta, degenerative changes and normal heart. The angles are sharp and the soft tissues are intact. CT chest w/o contrast: Limited study with bilateral infiltrates and no evidence of pulmonary masses. Clinical correlation and follow-up recommended. ECho 04/01/16: LV normal size and function. RV normal size and function, mild AR Chest x-ray: Right-sided infiltrates. Recommend follow-up chest x-ray to resolution to exclude possibility of underlying mass. Head CT: No evidence of acute intracranial hemorrhage, edema, midline shift, mass effect, or skull fracture. Loss of volume of volume of the brain parenchyma with supratentorial chronic white matter microangiopathic ischemic changes. Lacunar infarcts in the basal ganglia, head of caudate nuclei. CT of facial bones: Right retro-orbital mass. 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 Right frontal sinus disease. Old fracture of the left frontal process of maxilla. Erosion of the anterior nasal septum. CT chest w/o contrast:The lung oshea are hyperaerated with diffusely increased interstitial markings indicative of COPD. There is patchy peripheral consolidation posteriorly within the right upper and lower lobes, as well as posterior aspect of the left lower lobe. No pulmonary masses or pleural effusions are identified. EKG: Atrial flutter. Ventricular rate 72. ASSESSMENT/PLAN: 86 year old female with pmh type 2 DM, asthma, squamous cell carcinoma of right eye from [facility] for loss of appetite, tachypnea, headache, change in mental status. 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 DNR Visit type - Emergency Visit Emergency Visit: Yes ED Registration Date: 03/31/16 Care time: The patient presented to the Emergency Department on the above date and was hospitalized for further evaluation of their emergent condition. - New Patient This patient is new to me today: No - Critical Care Critical Care patient: No
[2016-04-07] MEDS: HEPARIN NA (PORCINE) 5,000 UNITS/ML 1ML VIAL SQ SCH (21:49)
[2016-04-08] MEDS: HEPARIN NA (PORCINE) 5,000 UNITS/ML 1ML VIAL SQ SCH (06:14)
[2016-04-08] MEDS: INSULIN SLIDING SCALE (NOVOLOG) 1 VIAL SQ SCH ×4 (06:15→21:52)
[2016-04-08] MEDS: INSULIN DETEMIR 100 UNITS/ML MDV SQ SCH (06:15)
[2016-04-08] MEDS: sitaGLIPtin PHOSPHATE 100 MG TABLET (FP) PO SCH (06:15)
[2016-04-08] MEDS: ONDANSETRON 4 MG/2 ML VIAL IVPB PRN ×2 (11:10→21:52)
[2016-04-08] MEDS: ESCITALOPRAM OXALATE 10 MG TABLET (FP) PO SCH (11:36)
[2016-04-08] MEDS: ASPIRIN 81 MG CHEWABLE TABLETS PO SCH (11:36)
[2016-04-08] MEDS: MULTIVITAMINS (DAILY MVI) TABLET (FP) PO SCH (11:36)
[2016-04-08] MEDS: RANITIDINE HCL 150 MG TABLET (FP) PO SCH ×2 (11:36→21:37)
[2016-04-08] MEDS: HALOPERIDOL 0.5 MG TABLET PO SCH (11:36)
[2016-04-08] MEDS: AMINO ACIDS/PROTEIN HYDROLYS SUGAR-FREE 30 ML PACKET PO SCH ×2 (11:37→19:34)
--- NOTE | 2016-04-08 15:47 | PN ---
Teaching Attending Note Name of Resident: Herminio Saleem ATTENDING PHYSICIAN STATEMENT I saw and evaluated the patient. I reviewed the resident's note and discussed the case with the resident. I agree with the resident's findings and plan as documented. SUBJECTIVE: no fever or chills, has no pain , feels tired OBJECTIVE: NAD , more awake today .knows she is in hospital , not oriented to year CV: RRR Lungs : decreased breath sounds at bases ext : no edema on legs . abrasion on R olson ASSESSMENT AND PLAN: This is an 86-year-old woman with a history of type 2 DM, asthma, squamous cell carcinoma of right eyelid who presented to the ER from [facility] for change in mental status. she was diagnosed with PNA . 1- AMS , due to metabolic encephalopathy from infection. improved 2- HCAP: of zosyn ( completed 7 days ) . monitor 3- SCC of R eye lid . s/p Rtx day 3. needs 2 more 4- Cachexia , cont supplements 5- DM II : dc levemir due to hypoglycemia and decreased po intake . might need to dc januvia . cont SSI 6- P A fib. sinus now DVT px : sq heparin plan for [facility] after Rt is finished ( Tuesday )
--- NOTE | 2016-04-08 15:57 | PN ---
Progress Note (short form) - Note Progress Note: Rad Onc No complaints. Tolerating RT without significant toxicity @ 1200cGy. 2 fractions remaining, will cont tomorrow and complete on Tue due to holiday. Hospice planned after RT.
[2016-04-08] MEDS: SODIUM CHLORIDE 1,000 ML IV SCH (16:24)
--- NOTE | 2016-04-08 19:16 | PN ---
Physical Exam: SUBJECTIVE: Patient seen and examined pt received 3 dose of chemotherapy this morning Pt is feeling weak and tired No fever, no chills, no n/v, no pain, no shortness of breath. OBJECTIVE: Vital Signs Period Temp Pulse Resp BP Sys/Ojeda Pulse Ox Last 24 Hr 97.2 F-97.4 F 82-88 18-18 129-152/62-79 96-98 GENERAL: The patient is awake, alert, and oriented to person and place in no acute distress, look weak, frail and tired HEAD: Normal with no signs of trauma. EYES: right eye covered with eye patch with pink granulated tissue covered the eye globe with periorbital swelling and redness. left eye with pupil that react and intact EOM ENT: Ears normal, nares patent, oropharynx clear without exudates, dry mucous membranes. NECK: Trachea midline, full range of motion, supple. LUNGS: Breath sounds equal,diminished to auscultation bilaterally, no wheezes, no crackles, no accessory muscle use. HEART: Regular rate and rhythm, S1, S2 without murmur, rub or gallop. ABDOMEN: Soft, nontender, nondistended, normoactive bowel sounds, no guarding, no rebound, no hepatosplenomegaly, no masses. EXTREMITIES: 2+ pulses, warm, well-perfused, no edema. NEUROLOGICAL: Normal speech, gait not observed. strength 4/5 in upper ext and 3 /5 in lower ext PSYCH: despondent mood, flat affect. SKIN: Warm, dry, scaly, poor turgor, no rashes or lesions noted Laboratory Results - last 24 hr 04/07/16 04/08/16 04/08/16 21:40 05:16 11:47 POC Glucometer 94 94 132 04/08/16 17:44 POC Glucometer 109 Active Medications Generic Name Dose Route Start Last Admin Trade Name Freq PRN Reason Stop Dose Admin Acetaminophen 650 mg 03/31/16 15:44 04/07/16 16:59 Tylenol - PO 650 mg Q6H PRN Administration PAIN Amino Acids 30 ml 04/02/16 17:30 04/08/16 11:37 Prostat Sugar-Free Packet - PO 30 ml BID@0800,1730 BG Administration Aspirin 81 mg 04/01/16 10:00 04/08/16 11:36 Asa - PO 81 mg DAILY BG Administration Enoxaparin Sodium 30 mg 04/09/16 10:00 Lovenox - SQ DAILY BG Escitalopram Oxalate 10 mg 04/01/16 10:00 04/08/16 11:36 Lexapro - PO 10 mg DAILY BG Administration Haloperidol 0.5 mg 04/01/16 10:00 04/08/16 11:36 Haldol - PO 0.5 mg DAILY BG Administration Sodium Chloride 1,000 mls @ 60 mls/hr 04/03/16 16:14 04/08/16 16:24 Normal Saline - IV 60 mls/hr ASDIR BG Administration Insulin Aspart 1 vial 03/31/16 16:30 04/08/16 11:30 Novolog Vial Sliding Scale - SQ Not Given ACHS [facility] Protocol Magnesium Hydroxide 30 ml 03/31/16 15:52 03/31/16 23:05 Milk Of Magnesia - PO 30 ml DAILY PRN Administration CONSTIPATION Multivitamins/Minerals/Vitamin C 1 tab 04/02/16 11:45 04/08/16 11:36 Tab-A-Vit - PO 1 tab DAILY BG Administration Ondansetron HCl 4 mg 03/31/16 15:55 04/08/16 11:10 Zofran Injection IVPB 4 mg Q4H PRN Administration NAUSEA Ranitidine HCl 150 mg 03/31/16 22:00 04/08/16 11:36 Zantac - PO 150 mg BID BG Administration Sitagliptin Phosphate 100 mg 04/01/16 07:00 04/08/16 06:15 Januvia - PO Not Given DAILY@0700 BG Sodium Phosphate 133 ml 03/31/16 15:52 Fleet Adult Rectal Enema - RC DAILY PRN CONSTIPATION CBC, BMP 04/07/16 08:45 04/07/16 08:45 Cxr 04/07/16 Since 03/31/2016, there is no sign of an infiltrate at this time. There is rotation to the right, unfolded aorta, degenerative changes and normal heart. The angles are sharp and the soft tissues are intact. CT chest w/o contrast: Limited study with bilateral infiltrates and no evidence of pulmonary masses. Clinical correlation and follow-up recommended. ECho 04/01/16: LV normal size and function. RV normal size and function, mild AR Chest x-ray: Right-sided infiltrates. Recommend follow-up chest x-ray to resolution to exclude possibility of underlying mass. Head CT: No evidence of acute intracranial hemorrhage, edema, midline shift, mass effect, or skull fracture. Loss of volume of volume of the brain parenchyma with supratentorial chronic white matter microangiopathic ischemic changes. Lacunar infarcts in the basal ganglia, head of caudate nuclei. CT of facial bones: Right retro-orbital mass. 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 Right frontal sinus disease. Old fracture of the left frontal process of maxilla. Erosion of the anterior nasal septum. CT chest w/o contrast:The lung oshea are hyperaerated with diffusely increased interstitial markings indicative of COPD. There is patchy peripheral consolidation posteriorly within the right upper and lower lobes, as well as posterior aspect of the left lower lobe. No pulmonary masses or pleural effusions are identified. EKG: Atrial flutter. Ventricular rate 72. ASSESSMENT/PLAN: 86 year old female with pmh type 2 DM, asthma, squamous cell carcinoma of right eye from [facility] for loss of appetite, tachypnea, headache, change in mental status. 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 DNR Visit type - Emergency Visit Emergency Visit: Yes ED Registration Date: 03/31/16 Care time: The patient presented to the Emergency Department on the above date and was hospitalized for further evaluation of their emergent condition. - New Patient This patient is new to me today: No - Critical Care Critical Care patient: No
[2016-04-08] MEDS: ACETAMINOPHEN 325 MG TABLET (FP) PO PRN (21:51)
[2016-04-09] MEDS ORDERED: PT OWN MED DRAWER 7, Y5N ONE ×2 (06:02→09:59)
[2016-04-09] MEDS: ONDANSETRON 4 MG/2 ML VIAL IVPB PRN ×2 (06:08→10:14)
[2016-04-09] MEDS: sitaGLIPtin PHOSPHATE 100 MG TABLET (FP) PO SCH (06:08)
[2016-04-09] MEDS: ACETAMINOPHEN 325 MG TABLET (FP) PO PRN ×2 (06:08→16:20)
[2016-04-09] MEDS: INSULIN SLIDING SCALE (NOVOLOG) 1 VIAL SQ SCH ×4 (06:15→21:43)
[2016-04-09] MEDS: AMINO ACIDS/PROTEIN HYDROLYS SUGAR-FREE 30 ML PACKET PO SCH ×2 (09:35→17:50)
[2016-04-09] MEDS: ASPIRIN 81 MG CHEWABLE TABLETS PO SCH (10:14)
[2016-04-09] MEDS: MULTIVITAMINS (DAILY MVI) TABLET (FP) PO SCH (10:14)
[2016-04-09] MEDS: RANITIDINE HCL 150 MG TABLET (FP) PO SCH ×2 (10:14→21:43)
[2016-04-09] MEDS: ENOXAPARIN NA (PORCINE) 30 MG/0.3 ML DISP.SYRIN SQ SCH (10:14)
[2016-04-09] MEDS: HALOPERIDOL 0.5 MG TABLET PO SCH (10:15)
[2016-04-09] MEDS: ESCITALOPRAM OXALATE 10 MG TABLET (FP) PO SCH (10:15)
[2016-04-09] MEDS: SODIUM CHLORIDE 1,000 ML IV SCH ×2 (10:16→16:44)
--- NOTE | 2016-04-09 16:20 | PN ---
Physical Exam: SUBJECTIVE: Patient seen and examined Pt is awake, alert pt is weak and tired No s/s of acute distress Case was discussed with son and he wanted more testing to be done before she goes to [facility], also he wanted to know if more sessions of radiation will not help. call was placed to [facility] at [phone] but he was not in the office their fax number is [phone] Found out from the staff that pt was seen on 10/28/2015. Pt had an Orbitotomy on 12/05/2015. Pt never followed out for post op check up rt to likely multiple hospitalization. They did not do staging. All information were sent to [facility] Members of [address] [place] [address] oncology includes Geena Martin MD, MD Nick Mendosa MD, Demetrius Montalvo MD, and Antonio Downs MD will discuss case with Dr Avalos OBJECTIVE: Vital Signs Period Temp Pulse Resp BP Sys/Ojeda Pulse Ox Last 24 Hr 97.3 F-98.8 F 75-97 18-18 113-146/59-84 95-96 GENERAL: The patient is awake, alert, and oriented to person and place in no acute distress, look weak, frail and tired HEAD: Normal with no signs of trauma. EYES: right eye covered with eye patch with pink granulated tissue covered the eye globe with periorbital swelling and redness. left eye with pupil that react and intact EOM ENT: Ears normal, nares patent, oropharynx clear without exudates, dry mucous membranes. NECK: Trachea midline, full range of motion, supple. LUNGS: Breath sounds equal,diminished to auscultation bilaterally, no wheezes, no crackles, no accessory muscle use. HEART: Regular rate and rhythm, S1, S2 without murmur, rub or gallop. ABDOMEN: Soft, nontender, nondistended, normoactive bowel sounds, no guarding, no rebound, no hepatosplenomegaly, no masses. EXTREMITIES: 2+ pulses, warm, well-perfused, no edema. NEUROLOGICAL: Normal speech, gait not observed. strength 4/5 in upper ext and 3 /5 in lower ext PSYCH: despondent mood, flat affect. SKIN: Warm, dry, scaly, poor turgor, no rashes or lesions noted Laboratory Results - last 24 hr 1229/16 12/30/16 12/30/16 17:44 05:04 11:51 POC Glucometer 109 113 141 Active Medications Generic Name Dose Route Start Last Admin Trade Name Pallavi PRN Reason Stop Dose Admin Acetaminophen 650 mg 03/31/16 15:44 04/09/16 06:08 Tylenol - PO 650 mg Q6H PRN Administration PAIN Amino Acids 30 ml 04/02/16 17:30 04/09/16 09:35 Prostat Sugar-Free Packet - PO Not Given BID@0800,1730 BG Aspirin 81 mg 04/01/16 10:00 04/09/16 10:14 Asa - PO 81 mg DAILY BG Administration Enoxaparin Sodium 30 mg 04/09/16 10:00 04/09/16 10:14 Lovenox - SQ 30 mg DAILY BG Administration Escitalopram Oxalate 10 mg 04/01/16 10:00 04/09/16 10:15 Lexapro - PO 10 mg DAILY BG Administration Haloperidol 0.5 mg 04/01/16 10:00 04/09/16 10:15 Haldol - PO 0.5 mg DAILY BG Administration Sodium Chloride 1,000 mls @ 60 mls/hr 04/03/16 16:14 04/09/16 10:16 Normal Saline - IV 60 mls/hr ASDIR BG Administration Insulin Aspart 1 vial 03/31/16 16:30 04/09/16 11:54 Novolog Vial Sliding Scale - SQ Not Given ACHS [facility] Protocol Magnesium Hydroxide 30 ml 03/31/16 15:52 03/31/16 23:05 Milk Of Magnesia - PO 30 ml DAILY PRN Administration CONSTIPATION Multivitamins/Minerals/Vitamin C 1 tab 04/02/16 11:45 04/09/16 10:14 Tab-A-Vit - PO 1 tab DAILY BG Administration Ondansetron HCl 4 mg 03/31/16 15:55 04/09/16 10:14 Zofran Injection IVPB 4 mg Q4H PRN Administration NAUSEA Ranitidine HCl 150 mg 03/31/16 22:00 04/09/16 10:14 Zantac - PO 150 mg BID BG Administration Sitagliptin Phosphate 100 mg 04/01/16 07:00 04/09/16 06:08 Januvia - PO 100 mg DAILY@0700 BG Administration Sodium Phosphate 133 ml 03/31/16 15:52 Fleet Adult Rectal Enema - RC DAILY PRN CONSTIPATION CBC, BMP 04/07/16 08:45 04/07/16 08:45 Cxr 04/07/16 Since 03/31/2016, there is no sign of an infiltrate at this time. There is rotation to the right, unfolded aorta, degenerative changes and normal heart. The angles are sharp and the soft tissues are intact. CT chest w/o contrast: Limited study with bilateral infiltrates and no evidence of pulmonary masses. Clinical correlation and follow-up recommended. ECho 04/01/16: LV normal size and function. RV normal size and function, mild AR Chest x-ray: Right-sided infiltrates. Recommend follow-up chest x-ray to resolution to exclude possibility of underlying mass. Head CT: No evidence of acute intracranial hemorrhage, edema, midline shift, mass effect, or skull fracture. Loss of volume of volume of the brain parenchyma with supratentorial chronic white matter microangiopathic ischemic changes. Lacunar infarcts in the basal ganglia, head of caudate nuclei. CT of facial bones: Right retro-orbital mass. 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 Right frontal sinus disease. Old fracture of the left frontal process of maxilla. Erosion of the anterior nasal septum. CT chest w/o contrast:The lung oshea are hyperaerated with diffusely increased interstitial markings indicative of COPD. There is patchy peripheral consolidation posteriorly within the right upper and lower lobes, as well as posterior aspect of the left lower lobe. No pulmonary masses or pleural effusions are identified. EKG: Atrial flutter. Ventricular rate 72. ASSESSMENT/PLAN: 86 year old female with pmh type 2 DM, asthma, squamous cell carcinoma of right eye from [facility] for loss of appetite, tachypnea, headache, change in mental status. 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 Radiation therapy from 04/06/16 to 04/10/16 Fourth session this morning Accepted to [facility] post radiation Per family requested, we will do further testing for staging and possible treatment Family were explained that pt is a poor surgical candidate and pt will likely not do well with chemotherapy CT chest, abdomen, pelvis with IV contrast ordered MRI brain and Orbit ordered Start IV fluid NS at 75ml/h for 24 hours recall Hem/onc to reevaluate, Dr Sanders Case to be discussed with Dr Avalos DM2 Blood golucose controlled with Novolog sliding scale Januvia PAF Continue to monitor consider anticoagulation rate control Severe malnutrition Ensure Compact multivitamin Magic Cup ProStat HCAP Resolved Dehydration Encourage PO intake IVF DVT prophylaxis: consider heparin sq Disposition: keep in telemetry pending hem/onc, radiation therapy re-eval and more discussion with family. DNR Visit type - Emergency Visit Emergency Visit: Yes ED Registration Date: 03/31/16 Care time: The patient presented to the Emergency Department on the above date and was hospitalized for further evaluation of their emergent condition. - New Patient This patient is new to me today: No - Critical Care Critical Care patient: No
--- NOTE | 2016-04-09 16:26 | PN ---
Teaching Attending Note Name of Resident: Herminio Saleem ATTENDING PHYSICIAN STATEMENT I saw and evaluated the patient. I reviewed the resident's note and discussed the case with the resident. I agree with the resident's findings and plan as documented. SUBJECTIVE:feels tired, wants to sleep, does not want to be bothered. no events over night OBJECTIVE: NAD , awake .knows she is in hospital , not oriented to year CV: RRR Lungs : decreased breath sounds at bases ext : no edema on legs . ASSESSMENT AND PLAN: This is an 86-year-old woman with a history of type 2 DM, asthma, squamous cell carcinoma of right eyelid who presented to the ER from [facility] for change in mental status. she was diagnosed with PNA . 1- AMS , due to metabolic encephalopathy from infection. improved. 2- HCAP: off zosyn ( completed 7 days ) . monitor 3- SCC of R eye lid with invasion to the orbit on CT scan of orbit and head . s /p Rtx day 4 today . needs 1 more treatment d/w son today , family wish to proceed with further staging to explore further therapeutic options. Explained to family that due to her age, cachexia , poor functional status she is not a candidate for chemo. I am not sure that surgery will provide cure. will proceed with MRI of brain and orbits. will order Chest /ABD/Pelvis Ct scans Family is willing to wait fro all the results , before decision on [facility] placement . ALso , After imaging , will touch base with Dr. Avalos ( not able to reach him today ) D/w Dr. Sanders today . she will reevaluate 4- 4- Cachexia , cont supplements 5- DM II : off levemir . cont JAnuvia and SSI 6- P A fib. sinus now DVT px : sq heparin HLOC
[2016-04-10] MEDS: INSULIN SLIDING SCALE (NOVOLOG) 1 VIAL SQ SCH ×4 (06:58→22:18)
[2016-04-10] MEDS: sitaGLIPtin PHOSPHATE 100 MG TABLET (FP) PO SCH (06:59)
--- NOTE | 2016-04-10 07:19 | PN ---
Physical Exam: SUBJECTIVE: Patient seen and examined Pt is awake, no s/s of acute distress Pt is weak and frail Pt is asking for her breakfast and water this morning No fever, chills, no n/v, no chest pain, shortness of breath OBJECTIVE: Vital Signs Period Temp Pulse Resp BP Sys/Ojeda Pulse Ox Last 24 Hr 97.3 F-98.7 F 84-97 16-18 113-142/56-72 95-95 GENERAL: The patient is awake, alert, and oriented to person and place in no acute distress, look weak, frail and tired HEAD: Normal with no signs of trauma. EYES: right eye covered with eye patch with pink granulated tissue covered the eye globe with periorbital swelling and redness. left eye with pupil that react and intact EOM ENT: Ears normal, nares patent, oropharynx clear without exudates, dry mucous membranes. NECK: Trachea midline, full range of motion, supple. LUNGS: Breath sounds equal,diminished to auscultation bilaterally, no wheezes, no crackles, no accessory muscle use. HEART: Regular rate and rhythm, S1, S2 without murmur, rub or gallop. ABDOMEN: Soft, nontender, nondistended, normoactive bowel sounds, no guarding, no rebound, no hepatosplenomegaly, no masses. EXTREMITIES: 2+ pulses, warm, well-perfused, no edema. NEUROLOGICAL: Normal speech, gait not observed. strength 4/5 in upper ext and 3 /5 in lower ext PSYCH: despondent mood, flat affect. SKIN: Warm, dry, scaly, poor turgor, no rashes or lesions noted Laboratory Results - last 24 hr 04/09/16 04/09/16 04/09/16 11:51 17:03 20:51 POC Glucometer 141 116 97 04/10/16 06:32 POC Glucometer 113 Active Medications Generic Name Dose Route Start Last Admin Trade Name Freq PRN Reason Stop Dose Admin Acetaminophen 650 mg 03/31/16 15:44 04/09/16 16:20 Tylenol - PO 650 mg Q6H PRN Administration PAIN Amino Acids 30 ml 04/02/16 17:30 04/09/16 17:50 Prostat Sugar-Free Packet - PO Not Given BID@0800,1730 [facility] Aspirin 81 mg 04/01/16 10:00 04/09/16 10:14 Asa - PO 81 mg DAILY BG Administration Enoxaparin Sodium 30 mg 04/09/16 10:00 04/09/16 10:14 Lovenox - SQ 30 mg DAILY BG Administration Escitalopram Oxalate 10 mg 04/01/16 10:00 04/09/16 10:15 Lexapro - PO 10 mg DAILY BG Administration Haloperidol 0.5 mg 04/01/16 10:00 04/09/16 10:15 Haldol - PO 0.5 mg DAILY BG Administration Sodium Chloride 1,000 mls @ 60 mls/hr 04/03/16 16:14 04/09/16 16:44 Normal Saline - IV Not Given ASDIR [facility] Insulin Aspart 1 vial 03/31/16 16:30 04/10/16 06:58 Novolog Vial Sliding Scale - SQ Not Given ACHS [facility] Protocol Magnesium Hydroxide 30 ml 03/31/16 15:52 03/31/16 23:05 Milk Of Magnesia - PO 30 ml DAILY PRN Administration CONSTIPATION Multivitamins/Minerals/Vitamin C 1 tab 04/02/16 11:45 04/09/16 10:14 Tab-A-Vit - PO 1 tab DAILY BG Administration Ondansetron HCl 4 mg 03/31/16 15:55 04/09/16 10:14 Zofran Injection IVPB 4 mg Q4H PRN Administration NAUSEA Ranitidine HCl 150 mg 03/31/16 22:00 04/09/16 21:43 Zantac - PO 150 mg BID BG Administration Sitagliptin Phosphate 100 mg 04/01/16 07:00 04/10/16 06:59 Januvia - PO Not Given DAILY@0700 [facility] Sodium Phosphate 133 ml 03/31/16 15:52 Fleet Adult Rectal Enema - RC DAILY PRN CONSTIPATION CBC, BMP 04/07/16 08:45 04/07/16 08:45 MRI OF THE ORBITS (without and with contrast) 04/09/16: Clinical information: 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 As also noted on a facial bone CT exam of 03/31/2016 a large approximately 4.7 x 3.4 x 3.0 cm heterogeneous probably partially necrotic right retro-orbital lesion is seen. There is resultant ventral displacement of the ocular globe. The lesion involves the majority of the right bony orbit aside from a small portion inferiorly. There is mild expansion of the right bony orbit due to chronic remodeling. No discrete bone erosion is identified. The lesion extends into the orbital apex without definite involvement of the cavernous sinus. Fluid accumulation is seen within the right frontal sinus. The left orbit demonstrates no definite abnormality. A 1 cm full-thickness perforation is noted of the cartilaginous nasal septum. MRI brain 04/09/16 There is no MRI evidence of metastatic neoplastic disease. 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 Cxr 04/07/16 Since 03/31/2016, there is no sign of an infiltrate at this time. There is rotation to the right, unfolded aorta, degenerative changes and normal heart. The angles are sharp and the soft tissues are intact. CT chest w/o contrast: Limited study with bilateral infiltrates and no evidence of pulmonary masses. Clinical correlation and follow-up recommended. ECho 04/01/16: LV normal size and function. RV normal size and function, mild AR Chest x-ray: Right-sided infiltrates. Recommend follow-up chest x-ray to resolution to exclude possibility of underlying mass. Head CT: No evidence of acute intracranial hemorrhage, edema, midline shift, mass effect, or skull fracture. Loss of volume of volume of the brain parenchyma with supratentorial chronic white matter microangiopathic ischemic changes. Lacunar infarcts in the basal ganglia, head of caudate nuclei. CT of facial bones: Right retro-orbital mass. 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 Right frontal sinus disease. Old fracture of the left frontal process of maxilla. Erosion of the anterior nasal septum. CT chest w/o contrast:The lung oshea are hyperaerated with diffusely increased interstitial markings indicative of COPD. There is patchy peripheral consolidation posteriorly within the right upper and lower lobes, as well as posterior aspect of the left lower lobe. No pulmonary masses or pleural effusions are identified. EKG: Atrial flutter. Ventricular rate 72. ASSESSMENT/PLAN: 86 year old female with pmh type 2 DM, asthma, squamous cell carcinoma of right eye from [facility] for loss of appetite, tachypnea, headache, change in mental status. 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 Radiation therapy from 04/06/16 to 04/12/15 Fourth session yesterday, one more seesion Accepted to [facility] post radiation Per family requested, we will do further testing for staging and possible treatment Family were explained that pt is a poor surgical candidate and pt will likely not do well with chemotherapy CT chest, abdomen, pelvis with IV contrast ordered MRI brain and Orbit done ON IV fluid NS at 60ml/h recall Hem/onc to reevaluate, Dr Sanders Case to be discussed with Dr Avalos DM2 Blood golucose controlled with Novolog sliding scale Januvia PAF Continue to monitor consider anticoagulation rate control Severe malnutrition Ensure Compact multivitamin Magic Cup ProStat HCAP Resolved Dehydration Encourage PO intake IVF DVT prophylaxis: consider heparin sq Disposition: keep in telemetry pending hem/onc and radiation therapy re-eval and more discussion with family. DNR Visit type - Emergency Visit Emergency Visit: Yes ED Registration Date: 03/31/16 Care time: The patient presented to the Emergency Department on the above date and was hospitalized for further evaluation of their emergent condition. - New Patient This patient is new to me today: No - Critical Care Critical Care patient: No
--- NOTE | 2016-04-10 08:09 | PN ---
<Herminio Saleem - Last Filed: 04/10/16 08:30> Teaching Attending Note ATTENDING PHYSICIAN STATEMENT I saw and evaluated the patient. I reviewed the resident's note and discussed the case with the resident. I agree with the resident's findings and plan as documented. SUBJECTIVE: OBJECTIVE: ASSESSMENT AND PLAN: <SergeiHernán - Last Filed: 04/10/16 09:02> Teaching Attending Note Name of Resident: Herminio Saleem ATTENDING PHYSICIAN STATEMENT I saw and evaluated the patient. I reviewed the resident's note and discussed the case with the resident. I agree with the resident's findings and plan as documented. SUBJECTIVE: OBJECTIVE: Vital Signs Temperature 97 F L 04/10/16 07:20 Pulse Rate 96 H 04/10/16 07:20 Respiratory Rate 18 04/10/16 07:20 Blood Pressure 133/80 04/10/16 07:20 O2 Sat by Pulse Oximetry (%) 95 04/09/16 21:00 GENERAL: The patient is awake, alert, and confused, in no acute distress, cachectic HEAD: Normal with no signs of trauma. EYES: Dressing over right eye ( bulging of right eye with skin exposure, eye is closed) NECK: Full range of motion, supple. LUNGS: Breath sounds equal, clear to auscultation bilaterally, no wheezes, no crackles, no accessory muscle use. HEART: Regular rate and rhythm, S1, S2, (+) 2/6 systolic murmur. ABDOMEN: Soft, nontender, nondistended, normoactive bowel sounds, no guarding, no rebound, no hepatosplenomegaly, no masses. EXTREMITIES: 2+ pulses, warm, well-perfused, no edema. NEURO: Awake, CN 2-12 grossly intact CBCD WBC 7.4 K/mm3 (4.0-10.0) 04/07/16 08:45 RBC 3.60 M/mm3 (3.60-5.2) 04/07/16 08:45 Hgb 10.3 GM/dL (10.7-15.3) L 04/07/16 08:45 Hct 31.5 % (32.4-45.2) L 04/07/16 08:45 MCV 87.7 fl (80-96) 04/07/16 08:45 MCHC 32.7 g/dl (32.0-36.0) 04/07/16 08:45 RDW 14.9 % (11.6-15.6) 04/07/16 08:45 Plt Count 440 K/MM3 (134-434) H 04/07/16 08:45 MPV 7.4 fl (7.5-11.1) L 04/07/16 08:45 CMP Sodium 140 mmol/L (136-145) 04/07/16 08:45 Potassium 4.0 mmol/L (3.5-5.1) D 04/07/16 08:45 Chloride 104 mmol/L (98-107) 04/07/16 08:45 Carbon Dioxide 31 mmol/L (21-32) 04/07/16 08:45 Anion Gap 5 (8-16) L 04/07/16 08:45 BUN 4 mg/dL (7-18) L 04/07/16 08:45 Creatinine 0.3 mg/dL (0.55-1.02) L D 04/07/16 08:45 Creat Clearance w eGFR > 60 (>60) 03/31/16 13:30 Random Glucose 107 mg/dL (74-106) H D 04/07/16 08:45 Calcium 9.2 mg/dL (8.5-10.1) 04/07/16 08:45 Total Bilirubin 0.3 mg/dL (0.2-1.0) 03/31/16 13:30 AST 13 U/L (15-37) L 03/31/16 13:30 ALT 15 U/L (12-78) 03/31/16 13:30 Alkaline Phosphatase 143 U/L (45-117) H 03/31/16 13:30 Total Protein 6.8 g/dl (6.4-8.2) 03/31/16 13:30 Albumin 2.5 g/dl (3.4-5.0) L 03/31/16 13:30 CARDIAC ENZYMES Creatine Kinase 20 IU/L (26-192) L 03/31/16 13:30 Troponin I < 0.02 ng/ml (0.00-0.05) 04/01/16 01:30 Current Medications Generic Name Dose Route Start Last Admin Trade Name Freq PRN Reason Stop Dose Admin Acetaminophen 650 mg 03/31/16 15:44 04/09/16 16:20 Tylenol - PO 650 mg Q6H PRN Administration PAIN Amino Acids 30 ml 04/02/16 17:30 04/09/16 17:50 Prostat Sugar-Free Packet - PO Not Given BID@0800,1730 ON LICENSE OF [facility] Aspirin 81 mg 04/01/16 10:00 04/09/16 10:14 Asa - PO 81 mg DAILY BG Administration Enoxaparin Sodium 30 mg 04/09/16 10:00 04/09/16 10:14 Lovenox - SQ 30 mg DAILY BG Administration Escitalopram Oxalate 10 mg 04/01/16 10:00 04/09/16 10:15 Lexapro - PO 10 mg DAILY BG Administration Haloperidol 0.5 mg 04/01/16 10:00 04/09/16 10:15 Haldol - PO 0.5 mg DAILY ON LICENSE OF [facility] Administration Sodium Chloride 1,000 mls @ 60 mls/hr 04/03/16 16:14 04/09/16 16:44 Normal Saline - IV Not Given ASDIR ON LICENSE OF [facility] Insulin Aspart 1 vial 03/31/16 16:30 04/10/16 06:58 Novolog Vial Sliding Scale - SQ Not Given ACHS ON LICENSE OF [facility] Protocol Magnesium Hydroxide 30 ml 03/31/16 15:52 03/31/16 23:05 Milk Of Magnesia - PO 30 ml DAILY PRN Administration CONSTIPATION Multivitamins/Minerals/Vitamin C 1 tab 04/02/16 11:45 04/09/16 10:14 Tab-A-Vit - PO 1 tab DAILY ON [facility] OF [facility] Administration Ondansetron HCl 4 mg 03/31/16 15:55 04/09/16 10:14 Zofran Injection IVPB 4 mg Q4H PRN Administration NAUSEA Ranitidine HCl 150 mg 03/31/16 22:00 04/09/16 21:43 Zantac - PO 150 mg BID ON LICENSE OF [facility] Administration Sitagliptin Phosphate 100 mg 04/01/16 07:00 04/10/16 06:59 Januvia - PO Not Given DAILY@0700 ON LICENSE OF [facility] Sodium Phosphate 133 ml 03/31/16 15:52 Fleet Adult Rectal Enema - RC DAILY PRN CONSTIPATION Medication Instructions Recorded Acetaminophen [Pain Relief] 650 mg PO Q6H PRN 03/31/16 Aspirin [ASA -] 81 mg PO DAILY 03/31/16 Bacitracin - [Bacitracin Topical 1 applic TP DAILY 03/31/16 Ointment -] Butalb/Acetaminophen/Caffeine 1 each PO Q4H PRN 03/31/16 [Fioricet 50-300-40 mg Capsule] Erythromycin 0.5% Eye Ointment 1 applic OD TID 03/31/16 [Erythromycin 0.5% Eye Ointment -] Escitalopram Oxalate [Lexapro -] 10 mg PO DAILY 03/31/16 Famotidine [Pepcid] 20 mg PO BID 03/31/16 Haloperidol 0.5 mg PO DAILY 03/31/16 Insulin Glargine,Hum.rec.anlog 5 units SQ DAILY 03/31/16 [Lantus (nf)] Magnesium Hydroxide [Milk of 400 mg PO DAILY PRN 03/31/16 Magnesia] Mineral Oil/Petrolatum,White 3.5 gm OD TID 03/31/16 [Artificial Tears Eye Ointment] Na Phos,M-B/Na Phos,Di-Ba [Enema 133 ml RC DAILY PRN 03/31/16 [id number]] Sitagliptin Phosphate [Januvia] 100 mg PO DAILY 03/31/16 ASSESSMENT AND PLAN: This is an 86-year-old woman with a history of type 2 DM, asthma, squamous cell carcinoma of right eyelid who presented to the ER from [facility] for change in mental status. 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 SCC of R eye lid with invasion to the orbit on CT scan of orbit and head . s/p Rtx day 4 today . needs 1 more treatment ,d/w son today , family wish to proceed with further staging to explore further therapeutic options. Explained to family that due to her age, cachexia , poor functional status she is not a candidate for chemo. I am not sure that surgery will provide cure. completd MRI of brain and orbits. Pending r Chest /ABD/Pelvis Ct scans. Patient is not taking much of oral intake, will start the patient on Clinimax. Also unable to drink po contrast and patient is very fragile. will have with IV constrast as ordered. Family is willing to wait fro all the results , before decision on [facility] placement . also , After imaging , will touch base with Dr. Avalos ( not able to reach him today ) Dr. Sanders is on the case . she will reevaluate Also discussed with her family; Daughter in law. # Acute Healthcare-associated pneumonia completed Zosyn for 7 days. # Acute severe malnutrition with Cachexia on Ensure Compact, multivitamin, Magic Cup, ProStat continue, tolerating diet, the aid is feeding the patient at bedside. nutrition consult. Patient is very cachectic and not eating much, will start the patient on [place] Iv at 84cc/hr, will stop the ivf for now. # T2DM on Levemir, Januvia, Novolog sliding scale # Paroxysmal atrial fibrillation in sinus rhythm DVT Px: SCDs
[2016-04-10] MEDS: AMINO ACIDS 4.25%/D5W 1,000 ML IV SCH ×2 (10:05→22:16)
[2016-04-10] MEDS: AMINO ACIDS/PROTEIN HYDROLYS SUGAR-FREE 30 ML PACKET PO SCH ×2 (10:07→17:51)
[2016-04-10] MEDS: ENOXAPARIN NA (PORCINE) 30 MG/0.3 ML DISP.SYRIN SQ SCH (10:11)
[2016-04-10] MEDS: MULTIVITAMINS (DAILY MVI) TABLET (FP) PO SCH (10:11)
[2016-04-10] MEDS: ASPIRIN 81 MG CHEWABLE TABLETS PO SCH (10:11)
[2016-04-10] MEDS: HALOPERIDOL 0.5 MG TABLET PO SCH (10:11)
[2016-04-10] MEDS: RANITIDINE HCL 150 MG TABLET (FP) PO SCH ×2 (10:11→22:17)
[2016-04-10] MEDS: ESCITALOPRAM OXALATE 10 MG TABLET (FP) PO SCH (10:11)
[2016-04-10] MEDS: ACETAMINOPHEN 325 MG TABLET (FP) PO PRN ×2 (13:08→22:17)
[2016-04-11] MEDS: INSULIN SLIDING SCALE (NOVOLOG) 1 VIAL SQ SCH ×4 (06:28→21:13)
[2016-04-11] MEDS: sitaGLIPtin PHOSPHATE 100 MG TABLET (FP) PO SCH (06:28)
[2016-04-11] MEDS ORDERED: INSULIN (NOVOLOG) ASPART 100 UNITS/ML 10ML VIAL ONE ×2 (07:02→21:12)
[2016-04-11 07:51] LABS: CALCIUM 8.5 mg/dL (8.5-10.1); CREATININE 0.3 mg/dL (0.55-1.02); MAGNESIUM 1.8 mg/dL (1.8-2.4)
[2016-04-11] MEDS: ESCITALOPRAM OXALATE 10 MG TABLET (FP) PO SCH (09:43)
[2016-04-11] MEDS: MULTIVITAMINS (DAILY MVI) TABLET (FP) PO SCH (09:43)
[2016-04-11] MEDS: ASPIRIN 81 MG CHEWABLE TABLETS PO SCH (09:43)
[2016-04-11] MEDS: HALOPERIDOL 0.5 MG TABLET PO SCH (09:43)
[2016-04-11] MEDS: RANITIDINE HCL 150 MG TABLET (FP) PO SCH ×2 (09:44→21:13)
[2016-04-11] MEDS: AMINO ACIDS 4.25%/D5W 1,000 ML IV SCH (09:44)
[2016-04-11] MEDS: AMINO ACIDS/PROTEIN HYDROLYS SUGAR-FREE 30 ML PACKET PO SCH ×2 (09:44→17:20)
[2016-04-11] MEDS: ENOXAPARIN NA (PORCINE) 30 MG/0.3 ML DISP.SYRIN SQ SCH (09:44)
--- NOTE | 2016-04-11 11:02 | PN ---
Physical Exam: SUBJECTIVE: Patient seen and examined Patient is lying in bed, lethargic, not eating, son and daughter in law at bedside. OBJECTIVE: Vital Signs Temperature 97.3 F L 04/11/16 06:00 Pulse Rate 63 04/11/16 06:00 Respiratory Rate 18 04/11/16 09:00 Blood Pressure 133/62 04/11/16 06:00 O2 Sat by Pulse Oximetry (%) 96 04/10/16 21:00 GENERAL: The patient is lying in bed, cachectic, opens eyes , NAD HEAD: Normal with no signs of trauma. EYES: Dressing over right eye ( bulging of right eye with skin exposure, eye is closed) NECK: Full range of motion, supple. LUNGS: Breath sounds equal, clear to auscultation bilaterally, no wheezes, no crackles, no accessory muscle use. HEART: Regular rate and rhythm, S1, S2, (+) 2/6 systolic murmur. ABDOMEN: Soft, nontender, nondistended, normoactive bowel sounds, no guarding, no rebound, no hepatosplenomegaly, no masses. EXTREMITIES: 2+ pulses, warm, well-perfused, no edema. NEURO: Awake, CN 2-12 grossly intact CBCD WBC 7.4 K/mm3 (4.0-10.0) 04/07/16 08:45 RBC 3.60 M/mm3 (3.60-5.2) 04/07/16 08:45 Hgb 10.3 GM/dL (10.7-15.3) L 04/07/16 08:45 Hct 31.5 % (32.4-45.2) L 04/07/16 08:45 MCV 87.7 fl (80-96) 04/07/16 08:45 MCHC 32.7 g/dl (32.0-36.0) 04/07/16 08:45 RDW 14.9 % (11.6-15.6) 04/07/16 08:45 Plt Count 440 K/MM3 (134-434) H 04/07/16 08:45 MPV 7.4 fl (7.5-11.1) L 04/07/16 08:45 CMP Sodium 137 mmol/L (136-145) 04/11/16 06:00 Potassium 3.3 mmol/L (3.5-5.1) L 04/11/16 06:00 Chloride 98 mmol/L (98-107) 04/11/16 06:00 Carbon Dioxide 33 mmol/L (21-32) H 04/11/16 06:00 Anion Gap 6 (8-16) L 04/11/16 06:00 BUN 13 mg/dL (7-18) D 04/11/16 06:00 Creatinine 0.3 mg/dL (0.55-1.02) L 04/11/16 06:00 Creat Clearance w eGFR > 60 (>60) 03/31/16 13:30 Random Glucose 177 mg/dL (74-106) H D 04/11/16 06:00 Calcium 8.5 mg/dL (8.5-10.1) 04/11/16 06:00 Total Bilirubin 0.3 mg/dL (0.2-1.0) 03/31/16 13:30 AST 13 U/L (15-37) L 03/31/16 13:30 ALT 15 U/L (12-78) 03/31/16 13:30 Alkaline Phosphatase 143 U/L (45-117) H 03/31/16 13:30 Total Protein 6.8 g/dl (6.4-8.2) 03/31/16 13:30 Albumin 2.5 g/dl (3.4-5.0) L 03/31/16 13:30 CARDIAC ENZYMES Creatine Kinase 20 IU/L (26-192) L 03/31/16 13:30 Troponin I < 0.02 ng/ml (0.00-0.05) 04/01/16 01:30 Active Medications Generic Name Dose Route Start Last Admin Trade Name Freq PRN Reason Stop Dose Admin Acetaminophen 650 mg 03/31/16 15:44 04/10/16 22:17 Tylenol - PO 650 mg Q6H PRN Administration PAIN Amino Acids 30 ml 04/02/16 17:30 04/11/16 09:44 Prostat Sugar-Free Packet - PO 30 ml BID@0800,1730 [facility] Administration Aspirin 81 mg 04/01/16 10:00 04/11/16 09:43 Asa - PO 81 mg DAILY BG Administration Enoxaparin Sodium 30 mg 04/09/16 10:00 04/11/16 09:44 Lovenox - SQ 30 mg DAILY BG Administration Escitalopram Oxalate 10 mg 04/01/16 10:00 04/11/16 09:43 Lexapro - PO 10 mg DAILY BG Administration Haloperidol 0.5 mg 04/01/16 10:00 04/11/16 09:43 Haldol - PO 0.5 mg DAILY BG Administration Amino Acids 1,000 mls @ 84 mls/hr 04/10/16 09:00 04/11/16 09:44 Clinimix - IV Not Given Q12H [facility] Insulin Aspart 1 vial 03/31/16 16:30 04/11/16 06:28 Novolog Vial Sliding Scale - SQ 2 units ACHS [facility] Administration Protocol Magnesium Hydroxide 30 ml 03/31/16 15:52 03/31/16 23:05 Milk Of Magnesia - PO 30 ml DAILY PRN Administration CONSTIPATION Multivitamins/Minerals/Vitamin C 1 tab 04/02/16 11:45 04/11/16 09:43 Tab-A-Vit - PO 1 tab DAILY BG Administration Ondansetron HCl 4 mg 03/31/16 15:55 04/09/16 10:14 Zofran Injection IVPB 4 mg Q4H PRN Administration NAUSEA Ranitidine HCl 150 mg 03/31/16 22:00 04/11/16 09:44 Zantac - PO 150 mg BID BG Administration Sitagliptin Phosphate 100 mg 04/01/16 07:00 04/11/16 06:28 Januvia - PO 100 mg DAILY@0700 [facility] Administration Sodium Phosphate 133 ml 03/31/16 15:52 Fleet Adult Rectal Enema - RC DAILY PRN CONSTIPATION Medication Instructions Recorded Acetaminophen [Pain Relief] 650 mg PO Q6H PRN 03/31/16 Aspirin [ASA -] 81 mg PO DAILY 03/31/16 Bacitracin - [Bacitracin Topical 1 applic TP DAILY 03/31/16 Ointment -] Butalb/Acetaminophen/Caffeine 1 each PO Q4H PRN 03/31/16 [Fioricet 50-300-40 mg Capsule] Erythromycin 0.5% Eye Ointment 1 applic OD TID 03/31/16 [Erythromycin 0.5% Eye Ointment -] Escitalopram Oxalate [Lexapro -] 10 mg PO DAILY 03/31/16 Famotidine [Pepcid] 20 mg PO BID 12/21/16 Haloperidol 0.5 mg PO DAILY 03/31/16 Insulin Glargine,Hum.rec.anlog 5 units SQ DAILY 03/31/16 [Lantus (nf)] Magnesium Hydroxide [Milk of 400 mg PO DAILY PRN 03/31/16 Magnesia] Mineral Oil/Petrolatum,White 3.5 gm OD TID 03/31/16 [Artificial Tears Eye Ointment] Na Phos,M-B/Na Phos,Di-Ba [Enema 133 ml RC DAILY PRN 03/31/16 [id number]] Sitagliptin Phosphate [Januvia] 100 mg PO DAILY 03/31/16 ASSESSMENT AND PLAN: This is an 86-year-old woman with a history of type 2 DM, asthma, squamous cell carcinoma of right eyelid who presented to the ER from [facility] for change in mental status. 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 SCC of R eye lid with invasion to the orbit on CT scan of orbit and head . needs 1 more treatment ,d/w son today and Daughter in law , son is aware that patient will not make it through chemo and with psychiatric issues that was going on for 3 years, and with his nutrition status. Patient is not taking much of oral intake, will start the patient on Clinimax.will add potassium to it due to hypokalemia. Dr. Sanders is on the case . she will reevaluate Also discussed with the son and Daughter in law. # Acute Healthcare-associated pneumonia completed Zosyn for 7 days. # Acute severe malnutrition with Cachexia on Ensure Compact, multivitamin, Magic Cup, ProStat continue, tolerating diet, the aid is feeding the patient at bedside. nutrition consult. Patient is very cachectic and not eating much, will start the patient on [place] Iv at 84cc/hr, will stop the ivf for now. Also on Clinamax IV # T2DM on Levemir, Januvia, Novolog sliding scale # Paroxysmal atrial fibrillation in sinus rhythm DVT Px: SCDs Visit type - Emergency Visit Emergency Visit: Yes ED Registration Date: 03/31/16 Care time: The patient presented to the Emergency Department on the above date and was hospitalized for further evaluation of their emergent condition. - New Patient This patient is new to me today: No - Critical Care Critical Care patient: No - Discharge Referral Referred to [facility] No
[2016-04-11] MEDS ORDERED: AMINO ACIDS 4.25%/D5W 1,000 ML IV SCH (20:25)
[2016-04-11] MEDS: POTASSIUM CHLORIDE 40 MEQ in AMINO ACIDS 4.25%/D5W 1,000 ML IVPB SCH (22:03)
[2016-04-12] MEDS: sitaGLIPtin PHOSPHATE 100 MG TABLET (FP) PO SCH (06:20)
[2016-04-12] MEDS: INSULIN SLIDING SCALE (NOVOLOG) 1 VIAL SQ SCH ×4 (06:20→21:57)
[2016-04-12] MEDS: AMINO ACIDS/PROTEIN HYDROLYS SUGAR-FREE 30 ML PACKET PO SCH ×2 (07:48→17:09)
[2016-04-12] MEDS ORDERED: PT OWN MED DRAWER 7, Y5N ONE (09:12)
[2016-04-12] MEDS: MULTIVITAMINS (DAILY MVI) TABLET (FP) PO SCH (09:19)
[2016-04-12] MEDS: RANITIDINE HCL 150 MG TABLET (FP) PO SCH ×2 (09:19→21:57)
[2016-04-12] MEDS: ESCITALOPRAM OXALATE 10 MG TABLET (FP) PO SCH (09:19)
[2016-04-12] MEDS: ENOXAPARIN NA (PORCINE) 30 MG/0.3 ML DISP.SYRIN SQ SCH (09:19)
[2016-04-12] MEDS: HALOPERIDOL 0.5 MG TABLET PO SCH (09:19)
[2016-04-12] MEDS: ASPIRIN 81 MG CHEWABLE TABLETS PO SCH (09:19)
--- NOTE | 2016-04-12 10:04 | PN ---
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 Selected Entries 04/09/16 04/09/16 04/09/16 09:00 10:00 14:00 Diet Tolerated Poor Poor Poor Skin Risk Level 04/09/16 04/10/16 04/10/16 23:32 10:03 22:00 Diet Tolerated Refused Refused Skin Risk Level High Risk 04/10/16 04/11/16 04/11/16 23:08 18:50 22:00 Diet Tolerated Refused Refused Refused Skin Risk Level High Risk
[2016-04-12] MEDS ORDERED: INSULIN (NOVOLOG) ASPART 100 UNITS/ML 10ML VIAL ONE (11:59)
[2016-04-12] MEDS: POTASSIUM CHLORIDE 40 MEQ in AMINO ACIDS 4.25%/D5W 1,000 ML IVPB SCH ×2 (12:05→20:45)
--- NOTE | 2016-04-12 15:17 | PN ---
Progress Note (short form) - Note Progress Note: Subjective: " leave me alone " did not prticipate in interview poor po intake per RN Objective: Vital Signs: Last Vital Signs Temp Pulse Resp BP Pulse Ox 98.3 F 92 H 20 122/73 95 04/12/16 14:00 04/12/16 14:00 04/12/16 14:00 04/12/16 14:00 04/12/16 10:11 Labs: Laboratory Results - last 24 hr 04/11/16 04/11/16 04/12/16 17:17 20:51 06:10 POC Glucometer 188 188 188 04/12/16 11:39 POC Glucometer 170 PE : NAD , awake .does not answer orientation questions CV: RRR Lungs : decreased breath sounds at bases ext : no edema on legs . ASSESSMENT AND PLAN: This is an 86-year-old unfortunate woman with a history of type 2 DM, asthma, squamous cell carcinoma of right eyelid who presented to the ER from [facility] for change in mental status. she was diagnosed with PNA . 1- HCAP: off zosyn ( completed 7 days ) . monitor 2- SCC of R eye lid: no evidence of Mets on MRI of brain and CTs of C/A/P has 1 more RTx remaining. will d/w Dr. Robbie pino for further RT Unable to reach SOn for further discussion about [facility] VS other treatment ( he was interested in surgical Mgt if no Mets ) prognosis is poor due to her general condition . will advise 3- Cachexia , cont supplements . cont clinimix 4- DM II : off levemir . cont JAnuvia and SSI 5- P A fib. sinus now DVT px : sq heparin HLOC Visit type - Emergency Visit Emergency Visit: Yes ED Registration Date: 03/31/16 Care time: The patient presented to the Emergency Department on the above date and was hospitalized for further evaluation of their emergent condition. - New Patient This patient is new to me today: No - Critical Care Critical Care patient: No
[2016-04-13] MEDS: sitaGLIPtin PHOSPHATE 100 MG TABLET (FP) PO SCH (06:00)
[2016-04-13] MEDS: INSULIN SLIDING SCALE (NOVOLOG) 1 VIAL SQ SCH ×2 (06:00→11:57)
[2016-04-13 08:45] LABS: MAGNESIUM 1.7 mg/dL (1.8-2.4)
[2016-04-13 08:47] LABS: PHOSPHOROUS 1.6 mg/dL (2.5-4.9)
[2016-04-13 08:56] VITALS: BP 128/76; PULSE 94; TEMP 97.3
[2016-04-13] MEDS: ENOXAPARIN NA (PORCINE) 30 MG/0.3 ML DISP.SYRIN SQ SCH (09:49)
[2016-04-13] MEDS: ESCITALOPRAM OXALATE 10 MG TABLET (FP) PO SCH (09:53)
[2016-04-13] MEDS: ASPIRIN 81 MG CHEWABLE TABLETS PO SCH (09:53)
[2016-04-13] MEDS: POTASSIUM CHLORIDE 40 MEQ in AMINO ACIDS 4.25%/D5W 1,000 ML IVPB SCH (09:53)
[2016-04-13] MEDS: AMINO ACIDS/PROTEIN HYDROLYS SUGAR-FREE 30 ML PACKET PO SCH (09:53)
[2016-04-13] MEDS: MULTIVITAMINS (DAILY MVI) TABLET (FP) PO SCH (09:53)
[2016-04-13] MEDS: HALOPERIDOL 0.5 MG TABLET PO SCH (09:53)
[2016-04-13] MEDS: RANITIDINE HCL 150 MG TABLET (FP) PO SCH (09:53)
[2016-04-13] MEDS ORDERED: INSULIN (NOVOLOG) ASPART 100 UNITS/ML 10ML VIAL ONE (11:50)
[2016-04-13] MEDS ORDERED: MAGNESIUM OXIDE 400 MG TABLET (FP) PO ONE (12:14)
[2016-04-13] MEDS ORDERED: NAPH,MB-DB/K PH,MBDB POWDER PACKET PO ONE (12:15)
[2016-04-13] MEDS ORDERED: MAGNESIUM SULF 50% (8.12 MEQ/2 ML-1 GM VIAL) IVPB ONE (13:30)
--- NOTE | 2016-04-13 15:14 | PN ---
Teaching Attending Note Name of Resident: Evans Quigley ATTENDING PHYSICIAN STATEMENT I saw and evaluated the patient. I reviewed the resident's note and discussed the case with the resident. I agree with the resident's findings and plan as documented. SUBJECTIVE: tired and weak OBJECTIVE: NAD , awake .does not answer orientation questions CV: RRR Lungs : decreased breath sounds at bases ext : no edema on legs . ASSESSMENT AND PLAN: This is an 86-year-old unfortunate woman with a history of type 2 DM, asthma, squamous cell carcinoma of right eyelid who presented to the ER from [facility] for change in mental status. she was diagnosed with PNA . 1- HCAP: completed course 2- SCC of R eye lid: no evidence of Mets on MRI of brain and CTs of C/A/P last RT x today ,. d/w son Neftaly, declined sx or chemo 3- Cachexia , cont supplements . cont clinimix 4- DM II : cont januvia. might be dc if cont with poor po intake 5- P A fib. sinus now dispo : dc to [facility] per family wishes
--- NOTE | 2016-04-13 19:33 | DS ---
Physical Exam: SUBJECTIVE: Patient seen and examined Pt is awake look tired and weak No pain, no fever or chills, no n/v OBJECTIVE: Vital Signs Period Temp Pulse Resp BP Sys/Ojeda Pulse Ox Last 24 Hr 97.3 F-97.9 F 94-100 18-20 124-128/76-82 94-96 PHYSICAL EXAM GENERAL: The patient is awake, alert, and oriented to person and place in no acute distress, look weak, frail and tired HEAD: Normal with no signs of trauma. EYES: right eye covered with eye patch with pink granulated tissue covered the eye globe with periorbital swelling and redness. left eye with pupil that react and intact EOM ENT: Ears normal, nares patent, oropharynx clear without exudates, dry mucous membranes. NECK: Trachea midline, full range of motion, supple. LUNGS: Breath sounds equal,diminished to auscultation bilaterally, no wheezes, no crackles, no accessory muscle use. HEART: Regular rate and rhythm, S1, S2 without murmur, rub or gallop. ABDOMEN: Soft, nontender, nondistended, normoactive bowel sounds, no guarding, no rebound, no hepatosplenomegaly, no masses. EXTREMITIES: 2+ pulses, warm, well-perfused, no edema. NEUROLOGICAL: Normal speech, gait not observed. strength 4/5 in upper ext and 3 /5 in lower ext PSYCH: despondent mood, flat affect. SKIN: Warm, dry, scaly, poor turgor, no rashes or lesions noted LABS Laboratory Results - last 24 hr 04/12/16 04/13/16 04/13/16 21:55 05:51 08:05 Potassium 4.3 D POC Glucometer 204 182 Phosphorus 1.6 L Magnesium 1.7 L 04/13/16 11:27 Potassium POC Glucometer 184 Phosphorus Magnesium CBC, BMP 04/07/16 08:45 04/13/16 08:05 Microbiology 03/31/16 15:12 Urine - Urine - Catheterized Urine Culture - Final NO GROWTH OBTAINED 03/31/16 13:30 Blood - Peripheral Venous Blood Culture - Final NO GROWTH AFTER 5 DAYS INCUBATION 03/31/16 13:30 Blood - Peripheral Venous Blood Culture - Final NO GROWTH AFTER [address] chest w Iv contrast 04/10/[address] evidence of neoplastic disease. In comparison to a prior CT exam of 03/31/2016 note is made of probable partial resolution of mild subpleural consolidation within the right upper lobe and bilateral lower lobes posteriorly which may be on the basis of atelectasis and/ or infiltrates. Correlate clinically. A component of this appearance may also be due to parenchymal scarring. Correlate with follow-up CT to establish an accurate baseline and exclude progressive disease. The remainder of the exam demonstrates no definite interval change. There is possible bilateral hyperaeration which may be on the basis of COPD. Marked chronic T12 vertebral body compression fracture with moderate bony retropulsion. Moderate L1 vertebral compression fracture with mild bony retropulsion. This fracture is unchanged and is probably chronic in nature (versus being subacute). Correlate clinically. Healed right rib fractures are noted as well as a healed fracture of the right scapular body. CT abdomen and pelvis w IV contrast 04/10/[address] is no definite CT evidence of neoplastic disease involving the abdomen/pelvis. A small 1.3 x 0.5 cm elliptical shaped left hepatic lobe hypodense focus is seen which probably represents a normal variant and much less likely an unusual neoplastic focus. Correlation with 2 month follow-up CT may be performed to document stability. Chronic pelvic and sacral fractures are noted which appear to be either chronic versus late subacute. 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 As also noted on a facial bone CT exam of 03/31/2016 a large approximately 4.7 x 3.4 x 3.0 cm heterogeneous probably partially necrotic right retro-orbital lesion is seen. There is resultant ventral displacement of the ocular globe. The lesion involves the majority of the right bony orbit aside from a small portion inferiorly. There is mild expansion of the right bony orbit due to chronic remodeling. No discrete bone erosion is identified. The lesion extends into the orbital apex without definite involvement of the cavernous sinus. Fluid accumulation is seen within the right frontal sinus. The left orbit demonstrates no definite abnormality. A 1 cm full-thickness perforation is noted of the cartilaginous nasal septum. MRI brain 04/09/16 There is no MRI evidence of metastatic neoplastic disease. 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 CXR 04/07/16 Since 03/31/2016, there is no sign of an infiltrate at this time. There is rotation to the right, unfolded aorta, degenerative changes and normal heart. The angles are sharp and the soft tissues are intact. ECho 04/01/16: LV normal size and function. RV normal size and function, mild AR Chest x-ray 04/07/16: Right-sided infiltrates. Recommend follow-up chest x-ray to resolution to exclude possibility of underlying mass. Head CT 03/31/16: No evidence of acute intracranial hemorrhage, edema, midline shift, mass effect, or skull fracture. Loss of volume of volume of the brain parenchyma with supratentorial chronic white matter microangiopathic ischemic changes. Lacunar infarcts in the basal ganglia, head of caudate nuclei. CT of facial bones 03/31/16: Right retro-orbital mass. 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 Right frontal sinus disease. Old fracture of the left frontal process of maxilla. Erosion of the anterior nasal septum. CT chest w/o contrast 03/31/16:The lung oshea are hyperaerated with diffusely increased interstitial markings indicative of COPD. There is patchy peripheral consolidation posteriorly within the right upper and lower lobes, as well as posterior aspect of the left lower lobe. No pulmonary masses or pleural effusions are identified. Limited study with bilateral infiltrates and no evidence of pulmonary masses. Clinical correlation and follow-up recommended. EKG: Atrial flutter. Ventricular rate 72. HOSPITAL COURSE: Date of Admission:03/31/16 This is an 86-year-old woman who was sent in to the ER today for evaluation of change in mental status, poor oral intake and tachypnea. She is not able to provide a history. As per family, in November, she had swelling of her right eyelid and was diagnosed with squamous cell carcinoma at [facility]. Radiation was recommended. Family was unable to get her to follow up because of anxiety and panic attacks. She was admitted to [facility] around 2 months ago and transferred to rehab at [facility]. While there, her right eye has become more swollen and proptotic. Family says it was being treated with topical antibiotics. The patient has complained of headaches. She has not been eating. 86 year old female with pmh type 2 DM, asthma, squamous cell carcinoma of right eye from [facility] for loss of appetite, tachypnea, headache, change in mental status. Pt was found to have infiltrates in right upper lobes and left lower lobes Pneumonia was treated with zosyn for 7 day, ID was consulted and signed out. No fever, no productive cough, shortness of breath, no chest pain Squamous cell carcinoma of right eyelid with severe proptosis of right eye Radiation therapy from 04/06/16 to 04/13/15, Last session today. Accepted to [facility] post radiation Per family requested, More test were done including MRI brain/orbitz, CT Chest, abdomen and pelvis. no metastasis was found, however pt is a poor surgical candidate and pt will likely not do well with chemotherapy, radiation is only palliative at this point. Hem/onc to re-evaluate, Dr Sanders and Dr Avalos were recalled to re-evaluate the case and upon discussion with the family it was decided it was decided to continue palliative care and transfer the pt to [facility] post last session of chemotherapy DM2 Blood golucose controlled with, Novolog sliding scale and Januvia. Levemir was Dc during the admission PAF rate is controlled, not on anticoagulation ' Severe malnutrition Pt had poor appetite and BMI was verly low. Pt given Ensure Compact, multivitamin, Magic Cup and ProStat Dehydration Encourage PO intake and IV fluid was given with NS at 75 ml/h Date of Discharge: 04/13/16 Minutes to complete discharge: 40 Discharge Summary Reason For Visit: EYE CA,DEHYDRATION, FAILURE TO THRIVE Condition: Guarded - Instructions Diet, Activity, Other Instructions: Discharge to [facility] Palliative Care, DNR Dysphagia Purre diet, pills crushed in apple sauce, nectar thick liquid If oral intake decreases, please stop Januvia Referrals: Mahdi Luo MD [Primary Care Provider] - Disposition: [facility] - Home Medications Comprehensive Discharge Medication List: Ambulatory Orders Acetaminophen [Pain Relief] 650 mg PO Q6H PRN 03/31/16 Aspirin [ASA -] 81 mg PO DAILY 03/31/16 Bacitracin - [Bacitracin Topical Ointment -] 1 applic TP DAILY 03/31/16 Erythromycin 0.5% Eye Ointment [Erythromycin 0.5% Eye Ointment -] 1 applic OD TID 03/31/16 Escitalopram Oxalate [Lexapro -] 10 mg PO DAILY 03/31/16 Haloperidol 0.5 mg PO DAILY 03/31/16 Magnesium Hydroxide [Milk of Magnesia] 400 mg PO DAILY PRN 03/31/16 Na Phos,M-B/Na Phos,Di-Ba [Enema Aapjk-Xf-Upk] 133 ml RC DAILY PRN 03/31/16 Sitagliptin Phosphate [Januvia] 100 mg PO DAILY 03/31/16 Amino Acids/Protein Hydrolys [Prostat Sugar-Free Packet -] 30 ml PO BID@0800, 1730 packet 04/13/16 This patient is new to me today: No Emergency Visit: Yes ED Registration Date: 03/31/16 Care time: The patient presented to the Emergency Department on the above date and was hospitalized for further evaluation of their emergent condition. Critical Care patient: No - Discharge Referral Referred to [facility] Med P.C.: No
== END 2016-04-13 15:03 | disposition hospice, inpatient (51) | DRG 193 ==
LOC: JER 12:41 → JERBED 14:30 → J4S 16:33
PROVIDERS: ADMIT Internal Medicine; ATTEND Internal Medicine
DX: J18.9 Pneumonia, unspecified organism (principal); E43 Unspecified severe protein-calorie malnutrition; G93.41 Metabolic encephalopathy; Z68.1 Body mass index [BMI] 19.9 or less, adult; R64 Cachexia; I48.92 Unspecified atrial flutter; C44.122 Squamous cell carcinoma of skin of right eyelid, including canthus; H05.20 Unspecified exophthalmos; E86.0 Dehydration; E11.9 Type 2 diabetes mellitus without complications; J45.909 Unspecified asthma, uncomplicated; R62.7 Adult failure to thrive; H54.61 Unqualified visual loss, right eye, normal vision left eye; I48.0 Paroxysmal atrial fibrillation; R13.19 Other dysphagia; R06.82 Tachypnea, not elsewhere classified; Z66 Do not resuscitate; Z51.5 Encounter for palliative care
CPT/HCPCS: 36415; 70450-TC; 70486-TC; 70543-TC; 70553-TC; 71010-TC; 71250-TC; 71260-TC; 74177-TC; 80048; 80053; 81003; 82550; 82607; 82747; 82803; 83605; 83735; 84100; 84132; 84439; 84443; 84484; 85014; 85025; 85027; 85610; 85730; 86850; 86900; 86901; 87040; 87086; 90670; 93005; 93010; 93306-TC; 99283-25; J1644